=== PATIENT | male | born 1945 | race Caucasian/White ===

== ENCOUNTER 2016-10-10 09:13 | Inpatient (IN) ==
[2016-10-10] MEDS ORDERED: CEFTAROLINE 600 MG in SODIUM CHLORIDE 0.9% 100 ML IV STA (09:56)
--- NOTE | 2016-10-10 10:04 | XRay Report ---
XR chest 2V Date: 10/10/2016 9:33 AM History: Shortness of breath, fever Comparison: 03/17/2013 Technique: PA and lateral chest Findings: The heart is small and compressed by the over expanded lungs. Cardiac fat pads with chronic scarring in the lungs. Stable mediastinum. Old healed rib fractures with degenerative changes. Postoperative findings in the right shoulder. Impression: COPD with chronic scarring. No significant infiltration identified. PROCEDURE INTERPRETED AT [facility] DEPARTMENT OF RADIOLOGY Final Report Signed by: Dr. Yazmin Ferrer
[2016-10-10 10:20] LABS: Basophils # 0.1 10*3/uL (0.0-0.2); Basophils % 0.3 % (0.0-0.8); Eosinophils % 0.1 % (0.00-10.9); Hemoglobin 15.3 GM/DL (14.0-18.0); Immature Granulocytes % 0.7 %; Immature Granulocytes Absolute 0.16 #; Lymphocytes % 4.3 % (21.2-54.2); Mean Corpuscular Hemoglobin 29 PG (27-34); Mean Corpuscular Volume 85.9 FL (87-102); Mean Platelet Volume 11.8 FL (9.6-12.0); Monocytes # 1.5 10*3/uL (0.11-0.8); Monocytes % 6.9 % (1.7-12.7); Neutrophils # 19.2 10*3/uL (1.4-7.4); Neutrophils % 87.7 % (38.7-73.9); Platelet Count 162 T/CUMM (130-400); Red Blood Count 5.24 MC/CUMM (3.8-5.5); Red Cell Distribution Width 14.4 % (9.3-17.3); White Blood Count 21.9 T/CUMM (4-12)
[2016-10-10 10:38] LABS: Band Neutrophils 5 % (0-10); Lymphocytes 3 % (20-55); Segmented Neutrophils 86 % (50-85); Total Cells Counted 100
[2016-10-10 10:39] LABS: Giant Platelets Few; Hypochromasia Slight; Platelet Estimate Normal
[2016-10-10] MEDS ORDERED: CEFTAROLINE 600 MG VIAL IV ONE (10:48)
[2016-10-10] MEDS ORDERED: SODIUM CHLORIDE 0.9% 100 ML IV ONE (10:49)
[2016-10-10 10:53] LABS: Albumin 3.6 G/DL (3.4-5.0); Bilirubin,Total 0.5 MG/DL (0.2-1.0); Calcium 8.5 MG/DL (8.5-10.1); Total Protein 6.4 G/DL (6.4-8.3)
[2016-10-10 10:54] LABS: Potassium 4.6 MMOL/L (3.5-5.1)
--- NOTE | 2016-10-10 11:10 | Emergency Department Note ---
Gavino Matute Brittany, am scribing for, and in the presence of, Vamsi Graves MD 09:37. Star Matute Doug C, MD, personally performed the services described in this documentation, ascribed by Vita Mancia in my presence, and it is both accurate and complete . Arrival - Arrival Chief Complaint: Fever Stated Complaint: Feeling bad ED Nursing Triage Note: PATIENT TO TRIAGE WITH C/O ABD PAIN, CHEST PAIN, AND FEVER. PATIENTS STATES THAT HE STARTED RUNNING FEVER AND HAVING THE PAIN LAST NIGHT. Mode of Arrival: Wheelchair Limitations: No Limitations Source: Patient, RN Notes Reviewed Time Seen by Provider: 10/10/16 09:32 - History of Present Illness HPI Narrative: Patient is a 70-year-old white male presents emergency room complaining of fever , right upper abdominal and chest pain that began at 430 this morning. His checked his temperature and it was 101.4. Patient also noticed some redness and pain in his right calf which is typical of prior bouts of cellulitis. Patient states she has not had any cough or shortness of breath associated with this chest pain. He did have a chill this morning as well. He does have a history of chronic bronchitis for which she sees Dr. Rc Tripathi. He denies any nausea, vomiting, neck or shoulder discomfort. Onset (ago): hour(s) Consistency: constant Allergies/Adverse Reactions: Allergies Allergy/AdvReac Type Severity Reaction Status Date / Time IVP DYE Allergy Severe ANAPHYLAXIS Uncoded 10/10/16 09:22 statins AdvReac Fatigued Uncoded 10/10/16 09:22 Home Medications: Home Medications Medication Instructions Recorded Confirmed Type Albuterol Sulfate [Albuterol Neb] 2.5 mg RESP TX Q6H PRN 08/29/14 03/12/16 History Clopidogrel [Plavix] 75 mg PO DAILY 08/29/14 03/15/16 History Docusate Sodium 300 mg PO DAILY 08/29/14 03/12/16 History Ezetimibe [Zetia] 10 mg PO DAILY 08/29/14 03/12/16 History HYDROcodone/ACETAMIN 10-325 [[place] 1 tablet PO TID PRN 08/29/14 03/15/16 History 10-325] Ipratropium Inhaler [Atrovent 1 puff INH PRN PRN 08/29/14 03/12/16 History Inhaler] Methocarbamol 500 mg PO TID PRN 08/29/14 03/12/16 History Morphine Sulfate [Morphine Sulfate 30 mg PO DAILY 08/29/14 03/15/16 History ER] Morphine Sulfate [Morphine Sulfate 90 mg PO BID 08/29/14 03/15/16 History ER] Alendronate [Fosamax] 70 mg PO Q7DAY@0730 03/12/16 03/12/16 History Ascorbic Acid [Vitamin C] 1,000 mg PO DAILY 03/12/16 03/12/16 History Atenolol [Tenormin] 25 mg PO DAILY 03/12/16 03/12/16 History B12/Levomefolate Calcium/B-6 1 each PO DAILY 03/12/16 03/12/16 History [Foltx Tablet] Cholecalciferol (Vitamin D3) 1,000 unit PO DAILY 03/12/16 03/12/16 History [Vitamin D3] Losartan [Cozaar] 50 mg PO Q1-2H 03/12/16 03/12/16 History Multivitamin [Multivitamins] 1 each PO DAILY 03/12/16 03/12/16 History Lyman-3 Fatty Acids [Fish Oil] 2 tablet PO DAILY 03/12/16 03/12/16 History Ranitidine Tab [Zantac Tab] 150 mg PO BID 03/12/16 03/12/16 History Solifenacin Succinate [Vesicare] 10 mg PO DAILY 03/12/16 03/12/16 History hydrOXYzine pamoate [Hydroxyzine 25 mg PO DIRECTED PRN 03/12/16 03/12/16 History Pamoate] Review of System - Review of System 12 point system: reviewed and no additional remarkable complaints except as stated - Review of System Constitutional: Present: fever (101.4 highest). Absent: chills, diaphoresis Eyes: Absent: vision change Head/Ears/Nose/Throat: Absent: nasal drainage, sore throat Respiratory: Absent: cough, respiratory distress Cardiovascular: Present: chest pain (Right sided) Gastrointestinal: Present: abdominal pain. Absent: nausea, vomiting, diarrhea, constipation Genitourinary male: Absent: urgency, dysuria, frequency Musculoskeletal: Present: leg pain (RLE). Absent: arm pain, back pain, neck pain Skin: Present: change in color (redness to RLE) Neurological: Absent: headache Psychiatric: Absent: anxiety, depression Hematological/Lymphatic: Absent: easy bleeding, easy bruising Medical,Surgical,& Family Hx - Medical History Cardio: History of: Hypertension Neurology: History of: Cerebrovascular Accident No history of: Seizures HEENT: History of: Eye Problem (CATARACTS), Dental Problems (DENTURES) Endocrine: History of: Diabetes Mellitus (IDDM), Dyslipidemia Respiratory: History of: Bronchitis (CHRONIC), COPD Genitourinary: History of: Bladder Problem (FREQUENCY) Gastrointestinal: History of: GERD, Ulcerative Colitis Comment Only: GI Problems (CONSTIPATION) Musculoskeletal: History of: Musculoskeletal Problems (chronic pain, arthritis) Other: History of: Cancer (SKIN CA LEFT SHOULDER), MRSA, Skin Problems - Surgical History Neurologic Surgeries: Surgical HX of: Neurologic Surgery (DBS impantation) Abdominal Surgeries: Surgical HX of: Abdominal Surgery (COLECTOMY), Appendectomy , Cholecystectomy, Colonoscopy, EGD Orthopedic Surgeries: Surgical HX of;: Implanted Devices (DBS PAINCONTROL 1982) , Orthopedic Surgery (R ROTATOR CUFF LEFT FOOT) - Family History Family History: Reports;: Family Cancer (MOM SISTER) - Social History Smoking Status: Current every day smoker Frequency of Alcohol Use: None Type of Drug Use: None Exam Vital Signs: Vital Signs Temperature 100.1 F H 10/10/16 10:18 Pulse Rate 103 H 10/10/16 10:18 Respiratory Rate 18 10/10/16 10:18 Blood Pressure 118/68 10/10/16 10:18 O2 Sat by Pulse Oximetry 95 10/10/16 09:18 - General General appearance: alert, in no apparent distress - Head Head exam: Present: atraumatic, normocephalic, normal inspection - Eye Eye exam: Present: normal appearance, PERRL, EOMI - ENT ENT exam: Present: normal exam, normal oropharynx - Neck Neck exam: Present: normal inspection, full ROM, trachea midline - Chest Chest inspection: Present: normal inspection, symmetric chest wall rise - Respiratory Respiratory exam: Present: rales (Expiratory rales noted to the right base posteriorly). Absent: normal lung sounds bilaterally - Cardiovascular Cardiovascular exam: Present: regular rate, normal rhythm, normal heart sounds - Abdominal Exam Abdominal exam: Present: soft, tenderness (Upper abdominal tenderness to direct palpation), normal bowel sounds. Absent: distention - Extremities Exam Extremities exam: Present: full ROM. Absent: normal inspection (erythema noted to the anterior and medial portion of the right lower leg) - Back Exam Back exam: Present: normal inspection - Neurological Exam Neurological exam: Present: alert, oriented X3, CN II-XII intact. Absent: motor sensory deficit - Psychiatric Psychiatric exam: Present: normal affect, normal mood - Skin Skin exam: Present: warm, dry Course Course Narrative: Patient's clinical presentation, laboratory and radiograph findings were discussed with Radha who is covering the hospitalist service. She will see the patient in the ER and evaluate for admission. Cultures were obtained patient was started on Teflaro. Results - Labs CBC & BMP: 10/10/16 10:09 10/10/16 10:09 Lab Results: I have reviewed the patients labs Labs: Laboratory Tests 10/10/16 10:09 WBC 21.9 H RBC 5.24 Hgb 15.3 Hct 45.0 MCV 85.9 L Plt Count 162 Neut % (Auto) 87.7 H Lymph % (Auto) 4.3 L Neut # (Auto) 19.2 H Lymph # (Auto) 1.0 L [place] # (Auto) 1.5 H Laboratory Tests 10/10/16 10:09 Total Counted 100 Segmented Neutrophils 86 H Band Neutrophils 5 Lymphocytes 3 L Monocytes 6 Platelet Estimate Normal Giant Platelets Few Hypochromasia Slight - Diagnostic Findings Procedure: Chest x-ray: report reviewed by me (COPD with chronic scarring. No significant infiltration identified.) Disposition Clinical Impression: Cellulitis of lower extremity Case discussed with: patient Condition: Stable Time of Disposition: 11:09
[2016-10-10 11:24] LABS: Sedimentation Rate-Westergren 4 MM/HR (0-20)
--- NOTE | 2016-10-10 11:55 | Ultrasound Report ---
Exam: Right lower extremity venous Doppler/duplex ultrasound Comparison: 06/10/2009 Clinical history: Right leg edema Technique: Duplex scan of the right lower extremity veins using th B- mode/grayscale imaging and Dopplers spectral analysis and color flow. Findings: There is normal compression and augmentation of the right common femoral, superficial femoral and popliteal veins. The proximal right greater saphenous veins appear to be patent. Major venous structures of the right lower extremity demonstrating normal course and caliber with normal color-flow study and spectral analysis. Impression: No evidence to suggest deep venous thrombosis within the right lower extremity. Ultrasound images were captured and stored. PROCEDURE INTERPRETED AT [facility] DEPARTMENT OF RADIOLOGY Final Report Signed by: Dr. Yazmin Ferrer
--- NOTE | 2016-10-10 12:29 | Hospitalist History & Physical ---
Assessment and Plan (1) Sepsis Status: Acute Assessment and plan: The patient meets the sepsis criteria as evidenced by noted tachycardic with a heart rate of 103, leukocytosis with a white blood cell count of 21.9. In addition, the patient sustained a acute kidney injury with a BUN noted at 26 and creatinine at 1.70. Lactic acid was noted at 1.5. We will initiate the sepsis bundle and provide supportive care. Current Visit: Yes (2) Cellulitis of lower extremity Status: Acute Assessment and plan: The patient reports multiple recent bouts with cellulitis affecting the right lower extremity. The patient has been treated with multiple oral antibiotic agents; with his most recent antibiotic treatment on last month. He has clearly failed outpatient therapy. We will start empiric antibiotic coverage with Zosyn and vancomycin. We will provide supportive care. Current Visit: Yes History of Present Illness Chief complaint: Fever History of present illness: This is a very pleasant 70-year-old male that presented this morning to the ED at [facility] for the evaluation of fever. The patient has a medical history significant for hypertension, cerebrovascular accident, cataracts, [id number] diabetes mellitus, diabetic neuropathy, dyslipidemia, chronic obstructive pulmonary disease, urinary frequency, gastroesophageal reflux disease, ulcerative colitis, chronic pain, and arthritis. Patient has a surgical history significant for deep brain stimulator implantation, colectomy, appendectomy, cholecystectomy, colonoscopy, esophagogastroduodenoscopy, right toe amputations, and right rotator cuff repair. The patient reported the onset of symptoms this morning around 0430 this morning. He reports that he started to experience right upper abdominal and chest pain earlier this morning.. He asked his to check his temperature and it was noted at 101.4. In addition, the patient noted that he had some gross redness accompanied with pain to his right lower extremity which he attributed to cellulitis the patient reports multiple bouts of cellulitis in recent months; reporting his most recent outpatient treatment on last month. He reported that he completed a 14 day course of clindamycin and was told that if his cellulitis return he would probably need intravenous antibiotic coverage. Due to the severity of the reported symptoms, the patient presented to the ED at [facility] for further evaluation. The patient was seen and assessed at the time of ED presentation. The patient was febrile at the time of ED presentation with temperature noted at 100.4. The patient's right lower extremity was noted to be grossly warm with erythema and edema appreciated. The patient was also noted to be mildly tachycardic with a heart rate noted at 103. Labs were obtained which were significant for white blood cell count at 21.9, C-reactive protein 1.79 chloride 113, BUN 26, creatinine 1.70, and glucose at 197. Chest x-ray significant for chronic obstructive pulmonary disease with chronic scarring however, no significant infiltration was identified. Due to the severity of the patient's edema to the right lower leg, venous Doppler studies were ordered which were unremarkable for the presence of deep vein thrombosis in the right lower extremity. After brief discussion with both Dr. Graves and Dr. Churchill, the patient will be admitted to the hospitalist service. Home medications have been reviewed and reconciled. CODE STATUS discussed; the patient is a FULL CODE. Upon review of the patient's initial encounter, the patient meets the sepsis criteria. The sepsis bundle has been initiated. Home Medications Medication Instructions Recorded Confirmed Type Albuterol Sulfate [Albuterol Neb] 2.5 mg RESP TX Q6H PRN 08/29/14 03/12/16 History Clopidogrel [Plavix] 75 mg PO DAILY 08/29/14 03/15/16 History Docusate Sodium 300 mg PO DAILY 08/29/14 03/12/16 History Ezetimibe [Zetia] 10 mg PO DAILY 08/29/14 03/12/16 History HYDROcodone/ACETAMIN 10-325 [[place] 1 tablet PO TID PRN 08/29/14 03/15/16 History 10-325] Ipratropium Inhaler [Atrovent 1 puff INH PRN PRN 08/29/14 03/12/16 History Inhaler] Methocarbamol 500 mg PO TID PRN 08/29/14 03/12/16 History Morphine Sulfate [Morphine Sulfate 30 mg PO DAILY 08/29/14 03/15/16 History ER] Morphine Sulfate [Morphine Sulfate 90 mg PO BID 08/29/14 03/15/16 History ER] Alendronate [Fosamax] 70 mg PO Q7DAY@0703/12/16 03/12/16 History Ascorbic Acid [Vitamin C] 1,000 mg PO DAILY 03/12/16 03/12/16 History Atenolol [Tenormin] 25 mg PO DAILY 03/12/16 03/12/16 History B12/Levomefolate Calcium/B-6 1 each PO DAILY 03/12/16 03/12/16 History [Foltx Tablet] Cholecalciferol (Vitamin D3) 1,000 unit PO DAILY 03/12/16 03/12/16 History [Vitamin D3] Losartan [Cozaar] 50 mg PO Q1-2H 03/12/16 03/12/16 History Multivitamin [Multivitamins] 1 each PO DAILY 03/12/16 03/12/16 History Sargent-3 Fatty Acids [Fish Oil] 2 tablet PO DAILY 03/12/16 03/12/16 History Ranitidine Tab [Zantac Tab] 150 mg PO BID 03/12/16 03/12/16 History Solifenacin Succinate [Vesicare] 10 mg PO DAILY 03/12/16 03/12/16 History hydrOXYzine pamoate [Hydroxyzine 25 mg PO DIRECTED PRN 03/12/16 03/12/16 History Pamoate] Allergies Allergy/AdvReac Type Severity Reaction Status Date / Time IVP DYE Allergy Severe ANAPHYLAXIS Uncoded 10/10/16 09:22 statins AdvReac Fatigued Uncoded 10/10/16 09:22 Medical,Surgical,& Family Hx - Medical History Cardio: History of: Hypertension Neurology: History of: Cerebrovascular Accident (February 2013 (weakness left leg )) No history of: Seizures HEENT: History of: Eye Problem (CATARACTS), Dental Problems (DENTURES) Endocrine: History of: Diabetes Mellitus (IDDM), Dyslipidemia Respiratory: History of: Bronchitis (CHRONIC), COPD Genitourinary: History of: Bladder Problem (FREQUENCY) Gastrointestinal: History of: GERD, Ulcerative Colitis Comment Only: GI Problems (CONSTIPATION) Musculoskeletal: History of: Musculoskeletal Problems (chronic pain, arthritis) Other: History of: Cancer (SKIN CA LEFT SHOULDER), MRSA, Skin Problems - Surgical History Neurologic Surgeries: Surgical HX of: Neurologic Surgery (DBS impantation) Abdominal Surgeries: Surgical HX of: Abdominal Surgery (COLECTOMY), Appendectomy , Cholecystectomy, Colonoscopy, EGD Orthopedic Surgeries: Surgical HX of;: Implanted Devices (DBS PAINCONTROL 1982) , Orthopedic Surgery (R ROTATOR CUFF LEFT FOOT) - Family History Family History: Reports;: Family Cancer (MOM SISTER) - Social History Smoking Status: Current every day smoker Frequency of Alcohol Use: None Type of Drug Use: None 12 point system: reviewed and no additional remarkable complaints except as stated Exam - Constitutional Vitals: Period Temp Pulse Resp BP Sys/Blue Pulse Ox Last 24 Hr 97.9 F-100.1 F 68-103 18-20 114-153/57-68 95-96 General appearance: normal weight, no acute distress - Head Head exam: Present: normal inspection, normocephalic - Eye Eye exam: Present: EOMI. Absent: conjunctival injection Pupils: Present: PATRICE, normal accommodation - ENT ENT exam: Present: normal exam, normal external ear exam, normal oropharynx - Neck Neck exam: Present: normal inspection. Absent: lymphadenopathy, meningismus, tenderness, thyromegaly - Respiratory Respiratory exam: Present: clear to auscultation bilaterally. Absent: rales, rhonchi, stridor, wheezes - Cardiovascular Cardiovascular exam: Present: regular rate and rhythm. Absent: carotid bruit, diastolic murmur, gallop, JVD, rubs, systolic murmur - GI/Abdominal GI/Abdominal exam: Present: normal bowel sounds, soft - Extremities Exam Extremities exam: Present: normal capillary refill, edema (+2 edema noted to the right lower extremity), other (Gross erythema noted to the right lower extremity extending upward from the lower leg) - Back Exam Back exam: Present: normal inspection - Neurological Exam Neurological exam: Present: alert, oriented X3, CN II-XII intact - Psychiatric Psychiatric exam: Present: normal affect, normal mood - Skin Skin exam: Present: normal color, warm, dry Results - Labs CBC & BMP: 10/10/16 10:09 10/10/16 10:09 Lab Results: I have reviewed the past 24 hour labs Sepsis - Sepsis Classification of Sepsis: Sepsis Possible / Suspected infection from: Cellulitis - Physical Exam Physical Exam: The patient meets the sepsis criteria as evidenced by noted tachycardic with a heart rate of 103, leukocytosis with a white blood cell count of 21.9. In addition, the patient sustained a acute kidney injury with a BUN noted at 26 and creatinine at 1.70. Lactic acid was noted at 1.5. We will initiate the sepsis bundle and provide supportive care. - Physical Exam Respiratory exam: clear to auscultation bilaterally Capillary Refill: Less Than 3 Seconds Peripheral pulses: Radial (L): 2+, Radial (R): 2+, Dorsalis Pedis (L) PM: 2+, Dorsalis Pedis (R) PM: 2+, Posterior Tibialis (L): 2+, Posterior Tibialis (R): 2 + Cardiovascular exam: tachycardia Skin exam: normal color
[2016-10-10] MEDS ORDERED: DEXTROSE 50% 25 GM/50 ML SYRINGE IV PRN (12:36)
[2016-10-10] MEDS ORDERED: GLUCAGON 1 MG VIAL IM PRN (12:36)
[2016-10-10] MEDS: LOSARTAN 50 MG TABLET PO SCH ×2 (12:55→12:59)
[2016-10-10] MEDS: PIPERACILLIN/TAZOBACTAM 3,375 MG in SODIUM CHLORIDE 0.9% 100 ML IV SCH ×2 (12:55→21:03)
[2016-10-10] MEDS: INSULIN REGULAR 100 UNIT/ML SUBCUT SCH ×2 (17:02→21:05)
[2016-10-10] MEDS: VANCOMYCIN INJ 1,500 MG in SODIUM CHLORIDE 0.9% 500 ML IV SCH (17:03)
[2016-10-10] MEDS ORDERED: VANCOMYCIN INJ 1,500 MG in SODIUM CHLORIDE 0.9% 500 ML IV SCH (18:00)
[2016-10-10] MEDS: HydrOXYzine PAMOATE 25 MG CAPSULE PO PRN (19:09)
[2016-10-10] MEDS ORDERED: ONDANSETRON 4 MG/2 ML VIAL IV PRN (19:17)
[2016-10-10] MEDS ORDERED: ACETAMINOPHEN 325 MG TABLET PO PRN (20:41)
[2016-10-10] MEDS: FAMOTIDINE 20 MG TABLET PO SCH (20:59)
[2016-10-10] MEDS: MORPHINE ER 30 MG TABLET PO SCH (20:59)
[2016-10-11] MEDS: PIPERACILLIN/TAZOBACTAM 3,375 MG in SODIUM CHLORIDE 0.9% 100 ML IV SCH ×3 (05:26→23:30)
[2016-10-11 06:09] LABS: Basophils % 0.3 % (0.0-0.8); Eosinophils % 0.1 % (0.00-10.9); Hematocrit 40.6 VOL% (42.0-52.0); Hemoglobin 13.6 GM/DL (14.0-18.0); Immature Granulocytes % 0.5 %; Immature Granulocytes Absolute 0.08 #; Lymphocytes # 2.9 10*3/uL (1.4-4.0); Lymphocytes % 18.9 % (21.2-54.2); Mean Corpuscular HGB Conc 33.5 GM/DL (32-36); Mean Corpuscular Hemoglobin 29 PG (27-34); Mean Corpuscular Volume 87.1 FL (87-102); Mean Platelet Volume 12.4 FL (9.6-12.0); Monocytes # 1.1 10*3/uL (0.11-0.8); Monocytes % 7.4 % (1.7-12.7); Neutrophils % 72.8 % (38.7-73.9); Platelet Count 134 T/CUMM (130-400); Red Blood Count 4.66 MC/CUMM (3.8-5.5); Red Cell Distribution Width 14.5 % (9.3-17.3); White Blood Count 15.1 T/CUMM (4-12)
[2016-10-11 06:18] LABS: Apearance,Urine CLEAR (Clear); Bilirubin,Urine Negative (Negative); Blood, Urine Negative (Negative); Glucose,Urine (UA) Negative (Negative); Ketones,Urine Negative (Negative); Mucus,Urine Occasional /LPF (Occasional); Nitrite,Urine Negative (Negative); Protein,Urine Negative; RBC,Urine <1 /HPF (0-4); Urine Color Yellow (Yellow); Urine Specific Gravity 1.023 (1.001-1.035); Urine Urobilinogen < 2.0 EU/DL (0.2-1.0); WBC,Urine <1 /HPF (0-6)
[2016-10-11 06:53] LABS: Albumin 2.8 G/DL (3.4-5.0); Bilirubin,Total 0.4 MG/DL (0.2-1.0); Calcium 7.7 MG/DL (8.5-10.1); Osmolality,Calculated 296.7 MOS/KG (273-304); Potassium 4.5 MMOL/L (3.5-5.1); Total Protein 5.3 G/DL (6.4-8.3)
[2016-10-11] MEDS: METHOCARBAMOL 500 MG TABLET PO PRN ×2 (07:10→14:48)
[2016-10-11] MEDS: ATENOLOL 25 MG TABLET PO SCH (09:03)
[2016-10-11] MEDS: DOCUSATE SODIUM 100 MG CAPSULE PO SCH (09:04)
[2016-10-11] MEDS: MORPHINE ER 30 MG TABLET PO SCH ×4 (09:04→21:02)
[2016-10-11] MEDS: EZETIMIBE 10 MG TABLET PO SCH (09:04)
[2016-10-11] MEDS: SOLIFENACIN 5 MG TABLET PO SCH (09:04)
[2016-10-11] MEDS: CLOPIDOGREL 75 MG TABLET PO SCH (09:04)
[2016-10-11] MEDS: OMEGA 3 ACID ETHYL ESTERS 1 GM CAPSULE PO SCH (09:05)
[2016-10-11] MEDS: FAMOTIDINE 20 MG TABLET PO SCH ×2 (09:05→21:03)
[2016-10-11] MEDS: INSULIN REGULAR 100 UNIT/ML SUBCUT SCH ×4 (09:05→21:04)
[2016-10-11] MEDS: ASCORBIC ACID 500 MG TABLET PO SCH (09:09)
[2016-10-11] MEDS: CHOLECALCIFEROL 1,000 UNIT TABLET PO SCH (09:09)
[2016-10-11] MEDS: MULTIVITAMIN (CENTRUM) TABLET PO SCH (09:10)
[2016-10-11] MEDS: LOSARTAN 50 MG TABLET PO SCH (13:41)
--- NOTE | 2016-10-11 14:34 | Hospitalist Progress Note ---
Assessment and Plan (1) Cellulitis of lower extremity Status: Acute Assessment and plan: Patient responding to antibiotic. He has a chronic draining sinus at the first MTP stump on the right side this is strongly suggestive of osteomyelitis unfortunately cannot have MRI of the foot done because he has a brain implant. Do three-phase bone scan Current Visit: Yes (2) Sepsis Status: Acute Assessment and plan: Continue antibiotics. Fever curve was lysed. Follow the outcome of 3 phase bone scan Current Visit: Yes Hospitalist: Subjective Interval history: Patient seen interviewed and examined and chart has been doing much better the erythema is reducing in the right lower extremity this gentleman has a chronic draining sinus of the foot prior history of amputation of the first toe. Chronicity of this draining sinus is suspicious for possibility of chronic osteomyelitis. Is going to order an MRI on his foot however he has an implanted stimulator in his brain. I do not want to put him in a MRI magnetic with these. X-ray of the foot would not tell me much therefore I will do a three-phase bone scan. Granted the posterior horn having a differential diabetic osteopathy but if the abnormalities ease at the site of the draining sinus, that would suggest osteomyelitis. Negative three-phase bone scan is likely to mean no osteomyelitis. Exam - Constitutional Vitals: Period Temp Pulse Resp BP Sys/Blue Pulse Ox Last 24 Hr 97.8 F-102.2 F 58-94 17-20 110-137/53-81 92-98 General appearance: no acute distress, over weight - Eye Eye exam: Present: EOMI Pupils: Present: PATRICE - ENT ENT exam: Present: normal exam - Neck Neck exam: Present: normal inspection - Respiratory Respiratory exam: Present: clear to auscultation bilaterally - Cardiovascular Cardiovascular exam: Present: regular rate and rhythm - GI/Abdominal GI/Abdominal exam: Present: normal bowel sounds, soft - Extremities Exam Extremities exam: Present: full ROM - Neurological Exam Neurological exam: Present: alert, oriented X3, CN II-XII intact - Psychiatric Psychiatric exam: Present: normal affect, normal mood - Skin Skin exam: Present: warm, dry, other (Noted wound with a draining sinus at the right foot stump area.) Results - Labs CBC & BMP: 10/11/16 04:47 10/11/16 04:47 Lab Results: I have reviewed the past 24 hour labs (Noted leukocytosis creatinine one-point repeat CBC BMP and magnesium)
--- NOTE | 2016-10-11 14:51 | ECHO Report ---
Perez Sarabia Exam Date: 10/11/2016 09:48 Referring Physician: Technologist: clemencia Hernandez ARDMS, RVT Age: 70 Ht (in): 71 Wt (lb): 220 Gender: M Exam Location: [facility] Echo Indications: Essential (primary) hypertension, Hx: CVA, GERD, Sepsis, NIDDM, Diabetic neuropathy, Cellulitis lower extremities, Fever BP: 127 / 81 HR: 69 Rhythm: Sinus Technical Quality: IMPRESSIONS Technically difficult study 1+ left atrial enlargement Normal LV systolic function with ejection fraction estimated be 65% without obvious wall motion normality Probable aortic sclerosis without stenosis 1+ tricuspid regurgitation with RVSP 22 mmHg plus RAP MEASUREMENTS (Male / Female) Normal Values 2D ECHO LV Diastolic Diameter PLAX 5.9 cm 4.2 - 5.9 / 3.9 - 5.3 cm LV Systolic Diameter PLAX 2.8 cm LV Fractional Shortening PLAX 52.1 % IVS Diastolic Thickness 0.9 cm 0.6 - 1.0 / 0.6 - 0.9 cm LVPW Diastolic Thickness 1.1 cm 0.6 - 1.0 / 0.6 - 0.9 cm RV Internal Dim ED PLAX 3.7 cm Aortic Root Diameter 3.8 cm LA Systolic Diameter LX 4.3 cm 3.0 - 4.0 / 2.7 - 3.8 cm DOPPLER TR Peak Velocity 235.0 cm/s TR Peak Gradient 22.1 mmHg FINDINGS Left Ventricle Normal left ventricular cavity size. Normal left ventricular wall thickness. Left ventricular ejection fraction is estimated at 60-65 %. Right Ventricle Mildly increased right ventricular size. Right Atrium The right atrium is mildly enlarged. Left Atrium The left atrium is mildly enlarged. Mitral Valve Morphologically normal mitral valve without significant stenosis or prolapse. There is no mitral regurgitation. Aortic Valve Morphologically normal aortic valve without significant sclerosis or stenosis. There is no aortic regurgitation. Tricuspid Valve Morphologically normal tricuspid valve. Trace to mild tricuspid valve regurgitation. Tricuspid regurgitation velocities suggest a PAP of 32 mmHg. Pulmonic Valve Morphologically normal pulmonic valve without significant stenosis. There is no pulmonic regurgitation. Pericardium Normal pericardium without effusion. Aorta Normal ascending aorta dimension. Musa Cee (Electronically Signed) Final Date: 11 October 2016 14:50
[2016-10-11] MEDS: HydrOXYzine PAMOATE 25 MG CAPSULE PO PRN ×2 (14:56→21:15)
[2016-10-11] MEDS: VANCOMYCIN INJ 1,500 MG in SODIUM CHLORIDE 0.9% 500 ML IV SCH (19:33)
[2016-10-12] MEDS: PIPERACILLIN/TAZOBACTAM 3,375 MG in SODIUM CHLORIDE 0.9% 100 ML IV SCH ×3 (07:17→23:34)
[2016-10-12] MEDS: SOLIFENACIN 5 MG TABLET PO SCH (08:09)
[2016-10-12] MEDS: FAMOTIDINE 20 MG TABLET PO SCH ×2 (08:09→20:53)
[2016-10-12] MEDS: CLOPIDOGREL 75 MG TABLET PO SCH (08:09)
[2016-10-12] MEDS: EZETIMIBE 10 MG TABLET PO SCH (08:09)
[2016-10-12] MEDS: MORPHINE ER 30 MG TABLET PO SCH ×3 (08:09→20:52)
[2016-10-12] MEDS: DOCUSATE SODIUM 100 MG CAPSULE PO SCH (08:09)
[2016-10-12] MEDS: HydrOXYzine PAMOATE 25 MG CAPSULE PO PRN ×2 (08:10→20:52)
[2016-10-12] MEDS: ATENOLOL 25 MG TABLET PO SCH (08:10)
[2016-10-12] MEDS: ASCORBIC ACID 500 MG TABLET PO SCH (08:13)
[2016-10-12] MEDS: CHOLECALCIFEROL 1,000 UNIT TABLET PO SCH (08:13)
[2016-10-12] MEDS: OMEGA 3 ACID ETHYL ESTERS 1 GM CAPSULE PO SCH (08:14)
[2016-10-12] MEDS: MULTIVITAMIN (CENTRUM) TABLET PO SCH (08:14)
[2016-10-12] MEDS: INSULIN REGULAR 100 UNIT/ML SUBCUT SCH ×4 (08:20→21:41)
[2016-10-12] MEDS: HEPARIN 5,000 UNIT/1 ML VIAL SUBCUT SCH ×2 (10:31→20:53)
--- NOTE | 2016-10-12 11:55 | Hospitalist Progress Note ---
Assessment and Plan (1) Cellulitis of lower extremity Status: Acute Assessment and plan: Patient responding to antibiotic. He has a chronic draining sinus at the first MTP stump on the right side this is strongly suggestive of osteomyelitis unfortunately cannot have MRI of the foot done because he has a brain implant. Do three-phase bone scan Current Visit: Yes (2) Sepsis Status: Acute Assessment and plan: Continue antibiotics. Fever curve was lysed. Follow the outcome of 3 phase bone scan Current Visit: Yes Hospitalist: Subjective Interval history: Patient has been seen interviewed and examined and chart has been reviewed. Admitted 2 days ago with cellulitis involving the right lower extremity complicating a chronic infection at the first MTP chronic draining sinus. Status post amputation of the big toe on the right side and has had a wound that was never reviewed for quite a few months. Concerning the possibility of osteomyelitis I wanted to MRI of this right foot yesterday unfortunately this gentleman has an implant in his brain. Therefore I have scheduled for three- phase bone scan. If the bone scan is positive we will need to be treated for approximately 6 weeks with IV antibiotics for management of osteomyelitis. This is negative then she will be able to go home on oral antibiotics preferably minocycline 80 mg twice a day for 14 days. Because a bone scan is not done yet and is in the process of being done patient is still here so he may probably be discharged tomorrow or if the bone scan is positive then he will need to be arranged for IV antibiotics at home to take for 6 weeks. Exam - Constitutional Vitals: Period Temp Pulse Resp BP Sys/Blue Pulse Ox Last 24 Hr 97.2 F-98.2 F 49-60 18-20 108-158/52-67 91-97 General appearance: over weight - Head Head exam: Present: normocephalic, atraumatic - Eye Eye exam: Present: EOMI Pupils: Present: PATRICE - ENT ENT exam: Present: normal exam - Neck Neck exam: Present: normal inspection - Respiratory Respiratory exam: Present: clear to auscultation bilaterally - Cardiovascular Cardiovascular exam: Present: regular rate and rhythm - GI/Abdominal GI/Abdominal exam: Present: normal bowel sounds, soft - Extremities Exam Extremities exam: Present: full ROM, other (Amputation of the great toe on the right foot cellulitis of the right lower extremity is receding) - Neurological Exam Neurological exam: Present: alert, oriented X3, CN II-XII intact - Psychiatric Psychiatric exam: Present: normal affect, normal mood - Skin Skin exam: Present: normal color, warm, dry Results - Labs CBC & BMP: 10/11/16 04:47 10/11/16 04:47 Lab Results: I have reviewed the past 24 hour labs (Repeat CBC in the morning alongside BMP and magnesium)
[2016-10-12] MEDS: LOSARTAN 50 MG TABLET PO SCH (12:19)
--- NOTE | 2016-10-12 12:34 | Nuclear Medicine Report ---
NM bone 3 phase Indication: Chronic wound right foot. Three-phase bone scan: 30 mCi technetium 99 labeled MDP was injected. Arterial flow images over the legs and feet were obtained, followed by whole-body bone scan and more focused delayed imaging over both feet. Comparison: No recent radiographs of the foot.. Findings: The right leg is hyperemic when compared to the left. Increased activity involves the right great toe on delayed images, as well as the approximate right navicular region. The remainder of the skeletal structures show normal activity levels. Impression: Evidence of osteomyelitis right great toe and approximate right navicular. There are no plain films provided for comparison. Recommend 3 views of the foot. PROCEDURE INTERPRETED AT [facility] DEPARTMENT OF RADIOLOGY Final Report Signed by: Eladio Davison M.D.
--- NOTE | 2016-10-12 17:17 | XRay Report ---
Exam: XR foot 3V RT Date: 10/12/2016 4:36 PM Comparison: 02/02/2016, 3 phase bone scan 10/12/2016 Indication: Osteomyelitis, chronic foot Technique:[AP, oblique, and lateral right foot] Findings: Interval resection of the great toe in the mid first metatarsal location. Chronic deformity of the distal second metatarsal. Hammertoe deformity with chronic deformity especially the third toe. Vascular calcifications are identified. Impression: Interval amputation of the great toe with old healed fracture of the distal second metatarsal. Hammertoe deformity with overlapping densities especially at the level of the third toe. The findings in the bone scan are felt to be somewhat indeterminate and may be related to the interval surgery and prior fracture. No significant progressive periosteal thickening or bone destruction to indicate conclusive osteomyelitis and x-ray. If symptoms progress, MRI may be helpful for further evaluation. PROCEDURE INTERPRETED AT [facility] DEPARTMENT OF RADIOLOGY Final Report Signed by: Dr. Yazmin Ferrer
[2016-10-12] MEDS: VANCOMYCIN INJ 1,500 MG in SODIUM CHLORIDE 0.9% 500 ML IV SCH (20:23)
[2016-10-12] MEDS: MEMANTINE 5 MG TABLET PO SCH (20:52)
[2016-10-13] MEDS: PIPERACILLIN/TAZOBACTAM 3,375 MG in SODIUM CHLORIDE 0.9% 100 ML IV SCH (06:40)
[2016-10-13] MEDS: MEMANTINE 5 MG TABLET PO SCH (08:25)
[2016-10-13] MEDS: HydrOXYzine PAMOATE 25 MG CAPSULE PO PRN (08:25)
[2016-10-13] MEDS: SOLIFENACIN 5 MG TABLET PO SCH (08:25)
[2016-10-13] MEDS: CLOPIDOGREL 75 MG TABLET PO SCH (08:25)
[2016-10-13] MEDS: FAMOTIDINE 20 MG TABLET PO SCH (08:25)
[2016-10-13] MEDS: DOCUSATE SODIUM 100 MG CAPSULE PO SCH (08:25)
[2016-10-13] MEDS: ATENOLOL 25 MG TABLET PO SCH (08:25)
[2016-10-13] MEDS: MORPHINE ER 30 MG TABLET PO SCH ×2 (08:26→12:20)
[2016-10-13] MEDS: EZETIMIBE 10 MG TABLET PO SCH (08:26)
[2016-10-13] MEDS: HEPARIN 5,000 UNIT/1 ML VIAL SUBCUT SCH (08:26)
[2016-10-13] MEDS: OMEGA 3 ACID ETHYL ESTERS 1 GM CAPSULE PO SCH (09:17)
[2016-10-13] MEDS: INSULIN REGULAR 100 UNIT/ML SUBCUT SCH ×3 (09:17→17:19)
[2016-10-13] MEDS: MULTIVITAMIN (CENTRUM) TABLET PO SCH (09:17)
[2016-10-13] MEDS: ASCORBIC ACID 500 MG TABLET PO SCH (09:17)
[2016-10-13] MEDS: CHOLECALCIFEROL 1,000 UNIT TABLET PO SCH (09:17)
--- NOTE | 2016-10-13 11:43 | Infectious Disease Consult ---
Assessment and Plan (1) Cellulitis of lower extremity Status: Acute Assessment and plan: Recurring cellulitis due to chronic wound on Rt foot, improved. Treat with antibiotics as below. Current Visit: Yes (2) Sepsis Status: Acute Assessment and plan: Better, with resolved fever and improving leukocytosis. Current Visit: Yes (3) Chronic osteomyelitis of right foot Status: Acute Assessment and plan: The results of the bone scan and Rt foot xrays were discussed with Dr Davison and the conclusion given the overall clinical scenario is that the patient has chronic osteomyelitis of the Rt foot. Surprisingly his ESR is normal and his CRP is only mildly elevated Recommendations: 1. In preparation for d/c home, will switch to daily antibiotics for convenient dosing; so ertapenem 1g daily, and daptomycin 6mg/kg daily. Vanc. and Zoyn will be stopped. Plan is to treat for 6 weeks. 2. PICC placement today 3. Consult social services counselor to arrange outpatient IV antibiotics 4. Get baseline CPK (will monitor this weekly while on daptomycin) 5. Appt to see me in the office 1 week post discharge Thank you very much for the consult. Will follow. D/W patient's at bedside. Current Visit: Yes History of Present Illness Chief complaint: Suspected osteomyelitis of the right foot History of present illness: Mr. Sarabia is a 70 year old male with chronic wound to sole of right foot related to callus that has been "shaved" by podiatry every 3 weeks for the past several months. He presented to hospital 3 days ago with high fever and redness and pain to the right leg of sudden onset. This is the third time this happening to him in 3 months. Each time he was diagnosed with cellulitis and given antibiotic therapy. First 2 times clindamycin is what helped him but this time that did not help and so he is here in the hospital getting vancomycin and Zosyn. Because of the chronic nature of the wound on the sole of his foot and the fact that it is drains radiologic studies were done and they suggested osteomyelitis. He had a bone scan and then x-rays of the right foot. The latter study gave an equivocal report on whether or not there was osteomyelitis. It was felt the patient needs prolonged IV antibiotics for osteomyelitis and I am consulted. Patient had the right great toe amputated in February this year because of a chronic wound for almost a year which started out as a blister from a shoe. Patient is diabetic for about 30 years but it has been controlled with A1c less than 6.5%. Overall he is feeling much better now than when he first came to the hospital with resolved fever and much improved redness and pain of the right leg. Home Medications Medication Instructions Recorded Confirmed Type Albuterol Sulfate [Albuterol Neb] 2.5 mg RESP TX Q6H PRN 08/29/14 10/10/16 History Clopidogrel [Plavix] 75 mg PO DAILY 08/29/14 10/10/16 History Docusate Sodium 100 mg PO DAILY 08/29/14 10/10/16 History Ezetimibe [Zetia] 10 mg PO DAILY 08/29/14 10/10/16 History HYDROcodone/ACETAMIN 10-325 [[place] 1 tablet PO TID PRN 08/29/14 10/10/16 History 10-325] Ipratropium Inhaler [Atrovent 1 puff INH PRN PRN 08/29/14 10/10/16 History Inhaler] Methocarbamol 500 mg PO TID PRN 08/29/14 10/10/16 History Morphine Sulfate [Morphine Sulfate 30 mg PO AC LUNCH 08/29/14 10/10/16 History ER] Morphine Sulfate [Morphine Sulfate 90 mg PO BID 08/29/14 10/10/16 History ER] Alendronate [Fosamax] 70 mg PO Q7DAY@0730 03/12/16 10/10/16 History B12/Levomefolate Calcium/B-6 1 each PO DAILY 03/12/16 10/10/16 History [Foltx Tablet] Losartan [Cozaar] 50 mg PO PC LUNCH 03/12/16 10/10/16 History Multivitamin [Multivitamins] 1 each PO DAILY 03/12/16 10/10/16 History [place]-3 Fatty Acids [Fish Oil] 2 tablet PO DAILY 03/12/16 10/10/16 History Ranitidine Tab [Zantac Tab] 150 mg PO BID 03/12/16 10/10/16 History hydrOXYzine pamoate [Hydroxyzine 25 mg PO DIRECTED PRN 03/12/16 10/10/16 History Pamoate] HydrOXYzine PAMOATE CAP [Vistaril 25 mg PO Q6HR PRN 10/10/16 10/10/16 History Cap] Insulin NPH/Regular 70/30 [HumuLIN 18 units SUBCUT QPM 10/10/16 10/10/16 History 70/30] Insulin NPH/Regular 70/30 [HumuLIN 24 units SUBCUT QAM 10/10/16 10/10/16 History 70/30] Solifenacin Succinate [Vesicare] 10 mg PO QAM 10/10/16 10/10/16 History Triamterene/Hydrochlorothiazid 1 capsule PO DAILY 10/10/16 10/10/16 History [Triamterene-Hctz 37.5-25 mg Cp] cloNIDine HCl [Clonidine HCl] 0.15 mg PO BID 10/10/16 10/10/16 History Memantine [Namenda] 5 mg PO BID 10/12/16 10/12/16 History Allergies Allergy/AdvReac Type Severity Reaction Status Date / Time Iodinated Contrast Media - Allergy Severe ANAPHYLAXIS Verified 10/12/16 12:27 Oral and Ecdvabc-Ekb-Hmv Reductase AdvReac Fatigued Verified 10/12/16 12:27 Inhibitor 12 point system: reviewed and no additional remarkable complaints except as stated (Per HPI) Medical,Surgical,& Family Hx - Medical History Cardio: History of: Hypertension Neurology: History of: Cerebrovascular Accident (February 2013 (weakness left leg )) No history of: Seizures HEENT: History of: Eye Problem (CATARACTS), Dental Problems (DENTURES) Endocrine: History of: Diabetes Mellitus (IDDM), Dyslipidemia Respiratory: History of: Bronchitis (CHRONIC), COPD Genitourinary: History of: Bladder Problem (FREQUENCY) Gastrointestinal: History of: GERD, Ulcerative Colitis Comment Only: GI Problems (CONSTIPATION) Musculoskeletal: History of: Musculoskeletal Problems (chronic pain, arthritis) Other: History of: Cancer (SKIN CA LEFT SHOULDER), MRSA, Skin Problems - Surgical History Neurologic Surgeries: Surgical HX of: Neurologic Surgery (DBS impantation) Abdominal Surgeries: Surgical HX of: Abdominal Surgery (COLECTOMY), Appendectomy , Cholecystectomy, Colonoscopy, EGD Orthopedic Surgeries: Surgical HX of;: Implanted Devices (DBS PAINCONTROL 1982) , Orthopedic Surgery (R ROTATOR CUFF LEFT FOOT) - Family History Family History: Reports;: Family Cancer (MOM SISTER) - Social History Smoking Status: Current every day smoker Frequency of Alcohol Use: None Type of Drug Use: None Infectious Disease Exam H&P - Constitutional Vitals: Vital Signs Temp Pulse Resp BP Pulse Ox 98.0 F 60 20 155/67 94 L 10/13/16 08:00 10/13/16 08:00 10/13/16 08:00 10/13/16 08:00 10/13/16 08:00 Intake and Output 10/12/16 10/13/16 10/13/16 23:59 07:59 15:59 Intake Total 1080 / 1080 250 / 250 Balance 1080 / 1080 250 / 250 Intake: IV 600 / 600 100 / 100 Zosyn 3,375 mg In Ns 100 100 / 100 100 / 100 ml @ 25 mls/hr IV Q8H MADELINE Rx#:[id number] Vancomycin Inj 5,000 mg 500 / 500 In Ns 500 ml @ 250 mls/hr IV Q24H MADELINE Rx#: [id number] Oral 480 / 480 150 / 150 Other: Voiding Method Toilet Toilet # Voids 3 2 # Bowel Movements 0 1 Exam: General: Patient comfortable HEENT: Mucous membranes pink and moist, anicteric acyanotic, PATRICE, no oropharyngeal exudates Neck: Supple, no thyroid gland enlargement Respiratory system: Breath sounds vesicular, no crepitations or wheezes Cardiovascular: Normal S1 and S2, no murmurs appreciated Abdomen: Normal bowel sounds, soft nontender throughout, no organomegaly or mass Genitourinary: No suprapubic pain or bladder distention Extremities: Mild edema right leg, also there is mild erythema and hyperemia of the distal two thirds of the leg. He has a callus to the ball of the right foot with mild ulceration and scant bloody drainage. No tenderness on palpation. Absent great toe. Skin: No rash Reports - Labs CBC & BMP: 10/11/16 04:47 10/11/16 04:47 Labs: Laboratory Results - last 24 hr 10/12/16 10/12/16 10/12/16 11:01 15:49 20:59 POC Glucose 283 H 187 H 253 H 10/13/16 10/13/16 07:34 11:03 POC Glucose 118 H 215 H - Reports Microbiology: Microbiology 10/10/16 10:14 Blood Culture - Preliminary Blood No growth at 3 days 10/10/16 10:09 Blood Culture - Preliminary Blood No growth at 3 days 10/12/16 19:00 Wound Culture - Preliminary Foot - Right No Growth at 12 hours. 10/11/16 05:30 Urine Culture - Final Urine,Clean Catch No Growth at 48 hours. - Diagnostic Findings Procedure: X-ray: image reviewed by me, report reviewed by me (Right foot x-ray noted, bone scan results also noted with mention of also mellitus and right great toe however that toe has been amputated)
[2016-10-13] MEDS ORDERED: MULTIVITAMIN (BEROCCA) TABLET PO SCH (12:00)
[2016-10-13] MEDS: LOSARTAN 50 MG TABLET PO SCH (12:18)
[2016-10-13 14:58] LABS: Osmolality,Calculated 297.6 MOS/KG (273-304); Potassium 4.3 MMOL/L (3.5-5.1)
--- NOTE | 2016-10-13 15:39 | Discharge Summary ---
Hospital Course - Hospital Course Hospital Course: 70-year-old male with a medical history significant for hypertension, cerebrovascular accident, cataracts, [id number] diabetes mellitus, diabetic neuropathy, dyslipidemia, chronic obstructive pulmonary disease, urinary frequency, gastroesophageal reflux disease, ulcerative colitis, chronic pain, and arthritis. He was admitted to the hospitalist service for sepsis secondary to right lower extremity cellulitis. He was started on zosyn and vancomycin. He was also noted to have chronic draining sinus at the first MRP stump on the right side. Bone scan was concerning for chronic osteomyelitis. Infectious Disease was consulted. His antibiotics were switched to Ertapenem and Daptomycin with recommendations for 6 weeks of therapy. He has now reached maximal benefit of inpatient stay and will be discharged to home with home IV therapy. - Time spent with patient Time with patient DS: Greater than 30 minutes (40) Diagnosis - Discharge Diagnosis (1) Cellulitis of lower extremity Status: Resolved (2) Sepsis Status: Resolved (3) Chronic osteomyelitis of right foot Status: Chronic Discharge Plan - Discharge Data Disposition: Home Health Service Condition at Discharge: Stable Discharge Diet: advance to your usual diet Activity: increase activity as tolerated Hygiene: no restrictions Weight Bearing at Discharge: weight bear as tolerated Contact your physician if you experience:: fever over 101, Redness or swelling - Discharge Medications New DAPTOmycin [Cubicin] 600 mg IV Q24H vial Ertapenem [INVanz] 1,000 mg IV Q24H vial Continue Ezetimibe [Zetia] 10 mg PO DAILY Morphine Sulfate [Morphine ER Cap] 30 mg PO AC LUNCH Morphine Sulfate [Morphine ER Cap] 90 mg PO BID Methocarbamol 500 mg PO TID PRN PRN Reason: Pain HYDROcodone/ACETAMIN 10-325 [[place] 10-325] 1 tablet PO TID PRN PRN Reason: Pain Docusate Sodium 100 mg PO DAILY Clopidogrel [Plavix] 75 mg PO DAILY Albuterol Sulfate [Albuterol Neb] 2.5 mg RESP TX Q6H PRN PRN Reason: Shortness Of Breath/Wheezing Ipratropium Inhaler [Atrovent Inhaler] 1 puff INH PRN PRN PRN Reason: Shortness Of Breath Multivitamin [Multivitamins] 1 each PO DAILY Insulin NPH/Regular 70/30 [HumuLIN 70/30] 24 units SUBCUT QAM Triamterene/Hydrochlorothiazid [Triamterene-Hctz 37.5-25 mg Cp] 1 capsule PO DAILY Memantine [Namenda] 5 mg PO BID Alendronate [Fosamax] 70 mg PO Q7DAY@0730 Losartan [Cozaar] 50 mg PO PC LUNCH Ranitidine Tab [Zantac Tab] 150 mg PO BID B12/Levomefolate Calcium/B-6 [Foltx Tablet] 1 each PO DAILY [place]-3 Fatty Acids [Fish Oil] 2 tablet PO DAILY hydrOXYzine pamoate [Hydroxyzine Pamoate] 25 mg PO DIRECTED PRN PRN Reason: Pain Insulin NPH/Regular 70/30 [HumuLIN 70/30] 18 units SUBCUT QPM Solifenacin Succinate [Vesicare] 10 mg PO QAM HydrOXYzine PAMOATE CAP [Vistaril Cap] 25 mg PO Q6HR PRN PRN Reason: Sleep Discontinued cloNIDine HCl [Clonidine HCl] 0.15 mg PO BID - Follow Up or Referral - Forms/Instructions Instructions: Cellulitis (DC), Peripherally Inserted Central Catheters and Midline Catheters (DC) Exam - Constitutional Vitals: Period Temp Pulse Resp BP Sys/Blue Pulse Ox Last 24 Hr 97.4 F-98.0 F 48-60 18-20 103-155/56-76 94-98 General appearance: over weight - Head Head exam: Present: normocephalic, atraumatic - Eye Eye exam: Present: EOMI Pupils: Present: PATRICE - ENT ENT exam: Present: normal exam - Neck Neck exam: Present: normal inspection. Absent: tenderness - Respiratory Respiratory exam: Present: clear to auscultation bilaterally. Absent: wheezes - Cardiovascular Cardiovascular exam: Present: regular rate and rhythm - GI/Abdominal GI/Abdominal exam: Present: normal bowel sounds, soft. Absent: tenderness, rebound - Extremities Exam Extremities exam: Present: normal inspection - Back Exam Back exam: Present: normal inspection - Neurological Exam Neurological exam: Present: alert, oriented X3 - Psychiatric Psychiatric exam: Present: normal affect, normal mood - Skin Skin exam: Present: warm, intact Discharge Results Procedures and tests throughout hospitalization: Pending Orders 10/10/16 09:32 Urinalysis Stat 10/10/16 10:14 Blood Culture Stat 10/12/16 19:00 Wound Culture Routine 10/13/16 US guide vascular access Routine 10/13/16 13:58 IR PICC line insertion Routine 10/14/16 04:00 Basic Metabolic Panel w/Mg IN AM Comp Blood Count Auto Diff IN AM Labs on day of discharge: Labs from last 24 hours 10/13/16 10/13/16 10/13/16 14:26 11:03 07:34 Sodium 146 H Potassium 4.3 Chloride 115 H Carbon Dioxide 26 Anion Gap 9.3 BUN 23 H Creatinine 1.70 H GFR Calculation 51 BUN/Creatinine Ratio 13.00 Glucose 174 H POC Glucose 215 H 118 H Calculated Osmolality 297.6 Calcium 8.0 L Total Creatine Kinase 191 10/12/16 10/12/16 20:59 15:49 Sodium Potassium Chloride Carbon Dioxide Anion Gap BUN Creatinine GFR Calculation BUN/Creatinine Ratio Glucose POC Glucose 253 H 187 H Calculated Osmolality Calcium Total Creatine Kinase Preliminary micro results at discharge 10/10/16 10:14 Blood Culture - Preliminary Blood No growth at 3 days 10/10/16 10:09 Blood Culture - Preliminary Blood No growth at 3 days 10/12/16 19:00 Wound Culture - Preliminary Foot - Right No Growth at 12 hours. DS: Provider Date of admission: 10/10/16 11:17 Primary care physician: Rc Tripathi MD Attending physician on admission: Gui Churchill MD Consults: 10/10/16 12:12 Consult to Pastoral Services [CONS] Routine Comment: Pastoral Screen: Request Automatic Outsole Cutter Visit 10/10/16 16:30 Consult to Pharmacy [CONS] Routine Reason for Pharmacy Consult: Dose/Manage Vancomycin 10/12/16 16:34 Consult to Physician [CONS] Routine Comment: middle or intermediate school principal antibotics, for osteomylitis. Consulting Provider: Angella Adan 10/13/16 13:58 Consult to Case Mgmt/Social Srvs [CONS] Routine Reason for Case Mgmt/Social Srvs: Home IV Therapy Consult Comment: ertapenem 1g daily + daptomycin 6mg/kg daily until 11/21/16. 10/13/16 15:11 Consult to Case Mgmt/Social Srvs [CONS] Routine Reason for Case Mgmt/Social Srvs: Home Health Consult Comment: Home Health for IV infusions at home Discharging clinician: Joaquin Tinajero MD
[2016-10-13 15:48] VITALS: BP 183/77
[2016-10-13] MEDS ORDERED: ERTAPENEM 1,000 MG in SODIUM CHLORIDE 0.9% 100 ML IV SCH (16:00)
--- NOTE | 2016-10-13 17:15 | Post Interventional Procedure ---
Pre-op diagnosis: osteomyelitis Post-op diagnosis: same Procedure: PICC placement Contrast: none Flouroscopy: 1.5 min Radiologist: Ceferino Reynoso Anesthesia: local Specimens: none sent Estimated blood loss: minimal (5 mL) Complications: none Condition: stable Description/Findings: left arm 5 Fr dual lumen PICC placement done and ready to use Assessment and Plan - Time spent with patient Time spent with patient: Less than 30 minutes
--- NOTE | 2016-10-13 17:19 | Interventional Radiology Rpt ---
IR PICC line insertion, US guide vascular access IR PICC Placement Peripherally-inserted central catheter (PICC) placement using ultrasound and fluoroscopic guidance Ultrasound of the left upper extremity Clinical Information: 70-year-old male with osteomyelitis. PICC line is requested for long-term intravenous antibiotic administration Physician: Dr. Reynoso Procedure: The patient was advised of the benefits, risks, and alternatives of the procedure and informed consent was obtained. A time out was performed with verification of the patient's name, MRN, site of procedure, and type of procedure to be performed. The patient was positioned in the supine position on the angiographic table. The site was prepped and draped in the usual sterile fashion. Additionally, maximal sterile barrier technique was employed for the procedure. A electronic systems technician radiograph reveals no relevant abnormality. Ultrasound examination of the left arm demonstrates patent and compressible brachial and basilic veins. The left arm was prepped and draped in the usual sterile fashion. The left basilic vein was again identified. Using ultrasound guidance, a 21 gauge needle was used to access the vein. A permanent ultrasound recording of vascular access was obtained for the patient's record. A 0.018" cope wire was then advanced into the vein. The needle was exchanged for a 5 Maori peel-away sheath. A 5 Maori double lumen Bard Solo PICC catheter was measured and trimmed to the 48 cm sukhjinder. The PICC line was advanced through the sheath and into the central circulation. The catheter tip was positioned at the cavo-atrial junction. The peel-away sheath was then removed. At the conclusion of the procedure, the catheter was secured in place using a Stat-Lock device. A sterile dressing was applied. The lumens aspirate and flush freely. The catheter is ready for immediate use. The patient tolerated the procedure well and was returned to the PRU in stable condition. EBL: < 5 mL. Complications: None. Fluoroscopy time: 1.5 minutes Total number of images for this study: 3 Conclusion: Successful placement of a 5 Maori double lumen Bard Solo power injectable PICC via the left basilic vein. The catheter is ready for immediate use. PROCEDURE INTERPRETED AT [facility] DEPARTMENT OF RADIOLOGY Final Report Signed by: Ceferino Reynoso
== END 2016-10-13 18:34 | disposition home health service (06) | DRG 872 ==
LOC: N.ED 09:13 → N.EDINP 11:17 → SUATTDRO 11:17 → N.2E 11:48
PROVIDERS: ADMIT Internal Medicine Infectious Disease; ATTEND Internal Medicine

== ENCOUNTER 2020-01-20 12:21 | Inpatient (IN) ==
[2020-01-20] MEDS ORDERED: LORazepam 2 MG/1 ML VIAL IV STA (13:24)
[2020-01-20 13:29] LABS: Basophils % 0.3 % (0.0-0.8); Eosinophils # 0.1 10*3/uL (0.0-0.87); Eosinophils % 0.4 % (0.00-10.9); Hematocrit 41.9 VOL% (42.0-52.0); Hemoglobin 14.2 GM/DL (14.0-18.0); Immature Granulocytes Absolute 0.16 #; Lymphocytes # 3.2 10*3/uL (1.4-4.0); Lymphocytes % 19.7 % (21.2-54.2); Mean Corpuscular HGB Conc 33.9 GM/DL (32-36); Mean Corpuscular Volume 86.2 FL (87-102); Mean Platelet Volume 12.7 FL (9.6-12.0); Neutrophils % 65.6 % (38.7-73.9); Platelet Count 213 T/CUMM (130-400); Red Blood Count 4.86 MC/CUMM (3.8-5.5); Red Cell Distribution Width 12.9 % (9.3-17.3)
[2020-01-20 14:01] LABS: Osmolality,Calculated 296.8 MOS/KG (273-304)
[2020-01-20] MEDS ORDERED: MORPHINE 4 MG/1 ML VIAL IV PRN (14:16)
[2020-01-20] MEDS ORDERED: ONDANSETRON 4 MG/2 ML VIAL IV PRN (14:16)
[2020-01-20] MEDS ORDERED: ACETAMINOPHEN 325 MG TABLET PO PRN (14:16)
[2020-01-20] MEDS ORDERED: ZALEPLON 5 MG CAPSULE PO PRN (14:23)
[2020-01-20] MEDS ORDERED: IPRATROPIUM 500 MCG/2.5 ML NEB RESP TX PRN (14:23)
[2020-01-20] MEDS ORDERED: LACTULOSE 20 GM/30 ML UDCUP PO PRN (14:23)
[2020-01-20] MEDS: SODIUM CHLORIDE 0.45% 1,000 ML IV SCH (16:55)
[2020-01-20] MEDS: INSULIN NPH/REGULAR 70/30 100 UNIT/ML SUBCUT SCH ×2 (18:14→22:02)
[2020-01-20] MEDS: ENOXAPARIN 30 MG/0.3 ML SYRINGE SUBCUT SCH (20:58)
[2020-01-20] MEDS: EZETIMIBE 10 MG TABLET PO SCH (20:59)
[2020-01-20] MEDS ORDERED: DOCUSATE SODIUM 100 MG CAPSULE PO SCH (21:00)
[2020-01-20] MEDS: NYSTATIN CREAM 15 GM TUBE TOP SCH (21:11)
[2020-01-20] MEDS: ZINC OXIDE PASTE 113 GM TUBE TOP SCH (21:11)
[2020-01-20] MEDS: CALCIUM (CARBONATE) 600 MG TABLET PO SCH (22:01)
[2020-01-20] MEDS: DIVALPROEX 500 MG TABLET PO SCH (22:01)
[2020-01-20] MEDS: MEMANTINE 10 MG TABLET PO SCH (22:02)
[2020-01-20] MEDS: amLODIPine 10 MG TABLET PO SCH (22:02)
[2020-01-20] MEDS: MULTIVITAMIN (OCUVITE) TABLET PO SCH (22:02)
[2020-01-20] MEDS: FAMOTIDINE 20 MG TABLET PO SCH (22:02)
[2020-01-21] MEDS ORDERED: INSULIN NPH/REGULAR 70/30 100 UNIT/ML SUBCUT SCH (09:00)
[2020-01-21] MEDS ORDERED: fentaNYL 250 MCG/5 ML VIAL ONE (10:11)
[2020-01-21] MEDS ORDERED: MIDAZOLAM 2 MG/2 ML VIAL ONE (10:11)
[2020-01-21] MEDS ORDERED: ceFAZolin 1,000 MG VIAL ONE (10:55)
[2020-01-21] MEDS ORDERED: ONDANSETRON 4 MG/2 ML VIAL ONE (10:58)
[2020-01-21] MEDS ORDERED: PHENYLEPHRINE 1 MG/10 ML SYRINGE IV ONE ×2 (10:58→11:06)
[2020-01-21] MEDS ORDERED: ROCURONIUM 50 MG/5 ML VIAL IV ONE ×2 (10:58→11:16)
[2020-01-21] MEDS ORDERED: propofoL 200 MG/20 ML VIAL IV ONE (10:58)
[2020-01-21] MEDS ORDERED: SEVOFLURANE 1 UNIT/15 MINUTE INH ONE ×8 (10:58→11:53)
[2020-01-21] MEDS ORDERED: LIDOCAINE 2% 5 ML VIAL ONE (10:58)
[2020-01-21] MEDS ORDERED: ceFAZolin 2,000 MG in PREMIX 1 EACH IV ONE (11:00)
[2020-01-21] MEDS ORDERED: ePHEDrine 50 MG/ML VIAL ONE (11:08)
[2020-01-21] MEDS: CYANOCOBALAMIN 500 MCG TABLET PO SCH (11:15)
[2020-01-21] MEDS: MULTIVITAMIN (OCUVITE) TABLET PO SCH ×2 (11:15→22:49)
[2020-01-21] MEDS: FAMOTIDINE 20 MG TABLET PO SCH ×2 (11:15→22:49)
[2020-01-21] MEDS: SOLIFENACIN 5 MG TABLET PO SCH (11:15)
[2020-01-21] MEDS: PANTOPRAZOLE 40 MG TABLET PO SCH (11:15)
[2020-01-21] MEDS: CHOLECALCIFEROL 1,000 UNIT TABLET PO SCH (11:15)
[2020-01-21] MEDS: DOCUSATE SODIUM 100 MG CAPSULE PO SCH ×2 (11:16→22:47)
[2020-01-21] MEDS: DIVALPROEX 250 MG TABLET PO SCH (11:16)
[2020-01-21] MEDS: MEMANTINE 10 MG TABLET PO SCH ×2 (11:16→22:48)
[2020-01-21] MEDS: MULTIVITAMIN (CENTRUM) TABLET PO SCH (11:16)
[2020-01-21] MEDS: CALCIUM (CARBONATE) 600 MG TABLET PO SCH ×2 (11:16→22:47)
[2020-01-21] MEDS ORDERED: PHENYLEPHRINE 10 MG/1 ML VIAL IV ONE ×2 (11:26→11:41)
[2020-01-21] MEDS ORDERED: SODIUM CHLORIDE 0.9% 250 ML IV ONE (11:27)
[2020-01-21] MEDS ORDERED: LACTATED RINGERS 1,000 ML IV ONE (11:53)
[2020-01-21] MEDS ORDERED: NEOSTIGMINE 10 MG/10 ML VIAL ONE (11:54)
[2020-01-21] MEDS ORDERED: GLYCOPYRROLATE 0.4 MG/2 ML VIAL ONE (11:54)
[2020-01-21] MEDS ORDERED: DEXTROSE 50% 25 GM/50 ML VIAL IV PRN (12:14)
[2020-01-21] MEDS ORDERED: GLUCAGON 1 MG VIAL IM PRN (12:14)
[2020-01-21] MEDS: SODIUM CHLORIDE 0.45% 1,000 ML IV SCH (13:02)
[2020-01-21] MEDS: NYSTATIN CREAM 15 GM TUBE TOP SCH ×2 (13:12→21:04)
[2020-01-21] MEDS: ZINC OXIDE PASTE 113 GM TUBE TOP SCH ×2 (13:12→21:04)
[2020-01-21] MEDS: ceFAZolin 1,000 MG in SYRINGE 1 EACH IV SCH ×2 (13:12→22:45)
[2020-01-21] MEDS: MORPHINE 4 MG/1 ML VIAL IV PRN ×2 (14:18→17:31)
[2020-01-21] MEDS: INSULIN NPH/REGULAR 70/30 100 UNIT/ML SUBCUT SCH ×2 (16:36→22:48)
[2020-01-21] MEDS ORDERED: TUBERCULIN SKIN TEST 0.1 ML SYRINGE INTRADERM ONE (18:49)
[2020-01-21] MEDS: ENOXAPARIN 30 MG/0.3 ML SYRINGE SUBCUT SCH (21:52)
[2020-01-21] MEDS: DIVALPROEX 500 MG TABLET PO SCH (22:34)
[2020-01-21] MEDS: amLODIPine 10 MG TABLET PO SCH (22:49)
[2020-01-21] MEDS: EZETIMIBE 10 MG TABLET PO SCH (22:49)
[2020-01-22] MEDS: MORPHINE 4 MG/1 ML VIAL IV PRN ×2 (04:31→12:36)
[2020-01-22] MEDS ORDERED: ceFAZolin 1,000 MG in SYRINGE 1 EACH IV SCH (07:15)
[2020-01-22] MEDS: ceFAZolin 1,000 MG in SYRINGE 1 EACH IV SCH (07:36)
[2020-01-22] MEDS: INSULIN NPH/REGULAR 70/30 100 UNIT/ML SUBCUT SCH ×2 (08:34→15:43)
[2020-01-22] MEDS ORDERED: HALOPERIDOL 5 MG/ML AMP IV PRN (08:58)
[2020-01-22 09:06] LABS: Basophils % 0.2 % (0.0-0.8); Eosinophils # 0.1 10*3/uL (0.0-0.87); Hematocrit 36.1 VOL% (42.0-52.0); Hemoglobin 12.4 GM/DL (14.0-18.0); Immature Granulocytes % 1.7 %; Immature Granulocytes Absolute 0.22 #; Lymphocytes # 2.4 10*3/uL (1.4-4.0); Lymphocytes % 18.9 % (21.2-54.2); Mean Corpuscular HGB Conc 34.3 GM/DL (32-36); Mean Corpuscular Volume 85.7 FL (87-102); Mean Platelet Volume 12.6 FL (9.6-12.0); Monocytes % 14.2 % (1.7-12.7); Platelet Count 189 T/CUMM (130-400); Red Blood Count 4.21 MC/CUMM (3.8-5.5); Red Cell Distribution Width 13.2 % (9.3-17.3); White Blood Count 12.7 T/CUMM (4-12)
[2020-01-22] MEDS ORDERED: LORazepam 2 MG/1 ML VIAL IM ONE (09:06)
[2020-01-22 09:24] LABS: Calcium 8.5 MG/DL (8.5-10.1); Osmolality,Calculated 296.1 MOS/KG (273-304)
[2020-01-22] MEDS: MULTIVITAMIN (OCUVITE) TABLET PO SCH ×2 (12:08→21:43)
[2020-01-22] MEDS: FAMOTIDINE 20 MG TABLET PO SCH ×2 (12:08→21:44)
[2020-01-22] MEDS: PANTOPRAZOLE 40 MG TABLET PO SCH (12:08)
[2020-01-22] MEDS: MEMANTINE 10 MG TABLET PO SCH ×2 (12:08→21:37)
[2020-01-22] MEDS: MULTIVITAMIN (CENTRUM) TABLET PO SCH (12:08)
[2020-01-22] MEDS: DIVALPROEX 250 MG TABLET PO SCH (12:08)
[2020-01-22] MEDS: CALCIUM (CARBONATE) 600 MG TABLET PO SCH ×2 (12:08→21:35)
[2020-01-22] MEDS: DOCUSATE SODIUM 100 MG CAPSULE PO SCH ×2 (12:08→21:36)
[2020-01-22] MEDS: CYANOCOBALAMIN 500 MCG TABLET PO SCH (12:09)
[2020-01-22] MEDS: INSULIN LISPRO 100 UNIT/ML SUBCUT SCH ×2 (12:09→15:43)
[2020-01-22] MEDS: SOLIFENACIN 5 MG TABLET PO SCH (12:09)
[2020-01-22] MEDS: CHOLECALCIFEROL 1,000 UNIT TABLET PO SCH (12:09)
[2020-01-22] MEDS: SODIUM CHLORIDE 0.45% 1,000 ML IV SCH (12:36)
[2020-01-22] MEDS: ZINC OXIDE PASTE 113 GM TUBE TOP SCH ×2 (12:37→21:36)
[2020-01-22] MEDS: NYSTATIN CREAM 15 GM TUBE TOP SCH ×2 (12:38→21:36)
[2020-01-22] MEDS: ENOXAPARIN 30 MG/0.3 ML SYRINGE SUBCUT SCH (21:25)
[2020-01-22] MEDS: DIVALPROEX 500 MG TABLET PO SCH (21:36)
[2020-01-22] MEDS: EZETIMIBE 10 MG TABLET PO SCH (21:44)
[2020-01-22] MEDS: amLODIPine 10 MG TABLET PO SCH (21:49)
[2020-01-22] MEDS: LORazepam 2 MG/1 ML VIAL IV PRN (22:39)
[2020-01-23 06:04] LABS: Basophils # 0.1 10*3/uL (0.0-0.2); Basophils % 0.4 % (0.0-0.8); Eosinophils # 0.1 10*3/uL (0.0-0.87); Eosinophils % 0.6 % (0.00-10.9); Hematocrit 36.5 VOL% (42.0-52.0); Hemoglobin 12.5 GM/DL (14.0-18.0); Immature Granulocytes % 1.7 %; Immature Granulocytes Absolute 0.22 #; Lymphocytes # 2.5 10*3/uL (1.4-4.0); Lymphocytes % 19.6 % (21.2-54.2); Mean Corpuscular HGB Conc 34.2 GM/DL (32-36); Mean Corpuscular Volume 86.1 FL (87-102); Mean Platelet Volume 12.7 FL (9.6-12.0); Monocytes % 13.9 % (1.7-12.7); Neutrophils % 63.8 % (38.7-73.9); Platelet Count 209 T/CUMM (130-400); Red Blood Count 4.24 MC/CUMM (3.8-5.5); Red Cell Distribution Width 13.2 % (9.3-17.3); White Blood Count 12.8 T/CUMM (4-12)
[2020-01-23] MEDS: INSULIN LISPRO 100 UNIT/ML SUBCUT SCH ×3 (07:12→15:31)
[2020-01-23] MEDS: INSULIN NPH/REGULAR 70/30 100 UNIT/ML SUBCUT SCH ×2 (07:49→15:34)
[2020-01-23] MEDS: PANTOPRAZOLE 40 MG TABLET PO SCH (09:09)
[2020-01-23] MEDS: CHOLECALCIFEROL 1,000 UNIT TABLET PO SCH (09:09)
[2020-01-23] MEDS: MULTIVITAMIN (CENTRUM) TABLET PO SCH (09:09)
[2020-01-23] MEDS: SOLIFENACIN 5 MG TABLET PO SCH (09:09)
[2020-01-23] MEDS: FAMOTIDINE 20 MG TABLET PO SCH ×2 (09:10→21:34)
[2020-01-23] MEDS: CALCIUM (CARBONATE) 600 MG TABLET PO SCH ×2 (09:10→21:35)
[2020-01-23] MEDS: DOCUSATE SODIUM 100 MG CAPSULE PO SCH ×2 (09:10→21:34)
[2020-01-23] MEDS: CYANOCOBALAMIN 500 MCG TABLET PO SCH (09:10)
[2020-01-23] MEDS: MEMANTINE 10 MG TABLET PO SCH ×2 (09:10→21:35)
[2020-01-23] MEDS: MORPHINE 4 MG/1 ML VIAL IV PRN ×2 (09:21→15:06)
[2020-01-23] MEDS: DIVALPROEX 250 MG TABLET PO SCH (09:44)
[2020-01-23] MEDS: MULTIVITAMIN (OCUVITE) TABLET PO SCH ×2 (09:45→21:35)
[2020-01-23] MEDS: ZINC OXIDE PASTE 113 GM TUBE TOP SCH ×2 (09:45→21:50)
[2020-01-23] MEDS: NYSTATIN CREAM 15 GM TUBE TOP SCH ×2 (09:45→21:50)
[2020-01-23] MEDS: SODIUM CHLORIDE 0.45% 1,000 ML IV SCH (10:34)
[2020-01-23] MEDS: amLODIPine 10 MG TABLET PO SCH (21:35)
[2020-01-23] MEDS: ENOXAPARIN 30 MG/0.3 ML SYRINGE SUBCUT SCH (21:35)
[2020-01-23] MEDS: DIVALPROEX 500 MG TABLET PO SCH ×2 (21:54→22:03)
[2020-01-23] MEDS: EZETIMIBE 10 MG TABLET PO SCH (22:02)
[2020-01-24] MEDS: LORazepam 2 MG/1 ML VIAL IV PRN (01:24)
[2020-01-24 06:12] LABS: Basophils % 0.3 % (0.0-0.8); Eosinophils # 0.1 10*3/uL (0.0-0.87); Eosinophils % 0.4 % (0.00-10.9); Immature Granulocytes % 1.2 %; Immature Granulocytes Absolute 0.16 #; Lymphocytes # 2.5 10*3/uL (1.4-4.0); Lymphocytes % 18.6 % (21.2-54.2); Mean Corpuscular HGB Conc 34.2 GM/DL (32-36); Mean Corpuscular Volume 86.4 FL (87-102); Neutrophils % 67.5 % (38.7-73.9); Platelet Count 235 T/CUMM (130-400); Red Cell Distribution Width 13.2 % (9.3-17.3); White Blood Count 13.6 T/CUMM (4-12)
[2020-01-24 06:35] LABS: Osmolality,Calculated 297.8 MOS/KG (273-304)
[2020-01-24] MEDS: MULTIVITAMIN (CENTRUM) TABLET PO SCH (09:50)
[2020-01-24] MEDS: MEMANTINE 10 MG TABLET PO SCH ×2 (09:50→22:12)
[2020-01-24] MEDS: FAMOTIDINE 20 MG TABLET PO SCH ×2 (09:50→22:11)
[2020-01-24] MEDS: CYANOCOBALAMIN 500 MCG TABLET PO SCH (09:50)
[2020-01-24] MEDS: PANTOPRAZOLE 40 MG TABLET PO SCH (09:50)
[2020-01-24] MEDS: MULTIVITAMIN (OCUVITE) TABLET PO SCH ×2 (09:51→22:12)
[2020-01-24] MEDS: SOLIFENACIN 5 MG TABLET PO SCH (09:51)
[2020-01-24] MEDS: CALCIUM (CARBONATE) 600 MG TABLET PO SCH ×2 (09:51→22:11)
[2020-01-24] MEDS: CHOLECALCIFEROL 1,000 UNIT TABLET PO SCH (09:51)
[2020-01-24] MEDS: INSULIN NPH/REGULAR 70/30 100 UNIT/ML SUBCUT SCH ×2 (10:26→16:09)
[2020-01-24] MEDS: INSULIN LISPRO 100 UNIT/ML SUBCUT SCH ×3 (10:26→16:09)
[2020-01-24] MEDS: DOCUSATE SODIUM 100 MG CAPSULE PO SCH ×2 (10:27→22:12)
[2020-01-24] MEDS: DIVALPROEX 250 MG TABLET PO SCH (10:27)
[2020-01-24] MEDS: ZINC OXIDE PASTE 113 GM TUBE TOP SCH ×2 (10:27→22:13)
[2020-01-24] MEDS: NYSTATIN CREAM 15 GM TUBE TOP SCH ×2 (10:27→22:13)
[2020-01-24] MEDS: SODIUM CHLORIDE 0.45% 1,000 ML IV SCH (10:30)
[2020-01-24] MEDS: MORPHINE 4 MG/1 ML VIAL IV PRN ×2 (11:34→15:44)
[2020-01-24] MEDS: amLODIPine 10 MG TABLET PO SCH (22:11)
[2020-01-24] MEDS: DIVALPROEX 500 MG TABLET PO SCH (22:12)
[2020-01-24] MEDS: EZETIMIBE 10 MG TABLET PO SCH (22:12)
[2020-01-24] MEDS: ENOXAPARIN 40 MG/0.4 ML SYRINGE SUBCUT SCH (22:12)
[2020-01-25 05:43] LABS: Basophils # 0.1 10*3/uL (0.0-0.2); Basophils % 0.5 % (0.0-0.8); Eosinophils # 0.3 10*3/uL (0.0-0.87); Eosinophils % 2.2 % (0.00-10.9); Hematocrit 36.6 VOL% (42.0-52.0); Hemoglobin 12.3 GM/DL (14.0-18.0); Immature Granulocytes Absolute 0.13 #; Lymphocytes # 3.1 10*3/uL (1.4-4.0); Lymphocytes % 24.7 % (21.2-54.2); Mean Corpuscular HGB Conc 33.6 GM/DL (32-36); Mean Corpuscular Volume 87.8 FL (87-102); Monocytes % 12.6 % (1.7-12.7); Platelet Count 230 T/CUMM (130-400); Red Blood Count 4.17 MC/CUMM (3.8-5.5); Red Cell Distribution Width 13.4 % (9.3-17.3); White Blood Count 12.4 T/CUMM (4-12)
[2020-01-25 06:51] LABS: Calcium 8.8 MG/DL (8.5-10.1); Osmolality,Calculated 305.3 MOS/KG (273-304)
[2020-01-25] MEDS: MULTIVITAMIN (CENTRUM) TABLET PO SCH (09:43)
[2020-01-25] MEDS: DIVALPROEX 250 MG TABLET PO SCH (09:43)
[2020-01-25] MEDS: DOCUSATE SODIUM 100 MG CAPSULE PO SCH ×2 (09:43→22:31)
[2020-01-25] MEDS: CALCIUM (CARBONATE) 600 MG TABLET PO SCH ×2 (09:43→22:30)
[2020-01-25] MEDS: NYSTATIN CREAM 15 GM TUBE TOP SCH ×2 (09:44→22:37)
[2020-01-25] MEDS: ZINC OXIDE PASTE 113 GM TUBE TOP SCH ×2 (09:44→22:37)
[2020-01-25] MEDS: MEMANTINE 10 MG TABLET PO SCH ×2 (09:44→22:32)
[2020-01-25] MEDS: FAMOTIDINE 20 MG TABLET PO SCH ×2 (09:44→22:31)
[2020-01-25] MEDS: MULTIVITAMIN (OCUVITE) TABLET PO SCH ×2 (09:44→22:31)
[2020-01-25] MEDS: PANTOPRAZOLE 40 MG TABLET PO SCH (09:44)
[2020-01-25] MEDS: CYANOCOBALAMIN 500 MCG TABLET PO SCH (09:45)
[2020-01-25] MEDS: CHOLECALCIFEROL 1,000 UNIT TABLET PO SCH (09:45)
[2020-01-25] MEDS: SOLIFENACIN 5 MG TABLET PO SCH (09:45)
[2020-01-25] MEDS: INSULIN NPH/REGULAR 70/30 100 UNIT/ML SUBCUT SCH ×3 (09:56→16:30)
[2020-01-25] MEDS: INSULIN LISPRO 100 UNIT/ML SUBCUT SCH ×3 (09:57→17:50)
[2020-01-25] MEDS: MORPHINE 4 MG/1 ML VIAL IV PRN ×2 (10:39→15:26)
[2020-01-25] MEDS: SODIUM CHLORIDE 0.45% 1,000 ML IV SCH ×2 (12:46→14:30)
[2020-01-25] MEDS: ENOXAPARIN 40 MG/0.4 ML SYRINGE SUBCUT SCH (22:30)
[2020-01-25] MEDS: EZETIMIBE 10 MG TABLET PO SCH (22:31)
[2020-01-25] MEDS: amLODIPine 10 MG TABLET PO SCH (22:32)
[2020-01-25] MEDS: DIVALPROEX 500 MG TABLET PO SCH (22:32)
[2020-01-26 06:14] LABS: Basophils # 0.1 10*3/uL (0.0-0.2); Basophils % 0.4 % (0.0-0.8); Eosinophils # 0.4 10*3/uL (0.0-0.87); Eosinophils % 3.1 % (0.00-10.9); Hematocrit 37.3 VOL% (42.0-52.0); Hemoglobin 12.6 GM/DL (14.0-18.0); Immature Granulocytes % 1.1 %; Immature Granulocytes Absolute 0.14 #; Lymphocytes # 3.3 10*3/uL (1.4-4.0); Mean Corpuscular HGB Conc 33.8 GM/DL (32-36); Mean Corpuscular Volume 87.6 FL (87-102); Mean Platelet Volume 11.7 FL (9.6-12.0); Monocytes % 11.4 % (1.7-12.7); Platelet Count 231 T/CUMM (130-400); Red Blood Count 4.26 MC/CUMM (3.8-5.5); Red Cell Distribution Width 13.6 % (9.3-17.3); White Blood Count 12.3 T/CUMM (4-12)
[2020-01-26 06:35] LABS: Calcium 8.7 MG/DL (8.5-10.1); Osmolality,Calculated 295.8 MOS/KG (273-304)
[2020-01-26] MEDS: CALCIUM (CARBONATE) 600 MG TABLET PO SCH ×2 (09:23→21:57)
[2020-01-26] MEDS: INSULIN NPH/REGULAR 70/30 100 UNIT/ML SUBCUT SCH ×2 (09:23→17:16)
[2020-01-26] MEDS: INSULIN LISPRO 100 UNIT/ML SUBCUT SCH ×3 (09:23→17:16)
[2020-01-26] MEDS: MULTIVITAMIN (CENTRUM) TABLET PO SCH (09:24)
[2020-01-26] MEDS: NYSTATIN CREAM 15 GM TUBE TOP SCH ×2 (09:24→22:03)
[2020-01-26] MEDS: DIVALPROEX 250 MG TABLET PO SCH (09:24)
[2020-01-26] MEDS: DOCUSATE SODIUM 100 MG CAPSULE PO SCH ×2 (09:24→21:57)
[2020-01-26] MEDS: ZINC OXIDE PASTE 113 GM TUBE TOP SCH ×2 (09:24→22:03)
[2020-01-26] MEDS: PANTOPRAZOLE 40 MG TABLET PO SCH (09:25)
[2020-01-26] MEDS: FAMOTIDINE 20 MG TABLET PO SCH ×2 (09:25→22:05)
[2020-01-26] MEDS: MULTIVITAMIN (OCUVITE) TABLET PO SCH ×2 (09:25→22:04)
[2020-01-26] MEDS: MEMANTINE 10 MG TABLET PO SCH ×2 (09:25→22:04)
[2020-01-26] MEDS: SOLIFENACIN 5 MG TABLET PO SCH (09:25)
[2020-01-26] MEDS: CHOLECALCIFEROL 1,000 UNIT TABLET PO SCH (09:26)
[2020-01-26] MEDS: CYANOCOBALAMIN 500 MCG TABLET PO SCH (09:26)
[2020-01-26] MEDS: SODIUM CHLORIDE 0.45% 1,000 ML IV SCH (12:08)
[2020-01-26] MEDS: MORPHINE 4 MG/1 ML VIAL IV PRN (15:18)
[2020-01-26] MEDS: fentaNYL 12 MCG/HR PATCH TRANSDERM SCH (18:40)
[2020-01-26] MEDS: DIVALPROEX 500 MG TABLET PO SCH (22:03)
[2020-01-26] MEDS: ENOXAPARIN 40 MG/0.4 ML SYRINGE SUBCUT SCH (22:03)
[2020-01-26] MEDS: amLODIPine 10 MG TABLET PO SCH (22:04)
[2020-01-26] MEDS: EZETIMIBE 10 MG TABLET PO SCH (22:05)
[2020-01-26] MEDS: LORazepam 2 MG/1 ML VIAL IV PRN (22:06)
[2020-01-27 06:35] LABS: Basophils % 0.2 % (0.0-0.8); Eosinophils # 0.3 10*3/uL (0.0-0.87); Eosinophils % 2.3 % (0.00-10.9); Hematocrit 38.2 VOL% (42.0-52.0); Hemoglobin 13.1 GM/DL (14.0-18.0); Immature Granulocytes % 1.2 %; Immature Granulocytes Absolute 0.16 #; Lymphocytes # 3.7 10*3/uL (1.4-4.0); Lymphocytes % 27.1 % (21.2-54.2); Mean Corpuscular HGB Conc 34.3 GM/DL (32-36); Mean Corpuscular Volume 86.6 FL (87-102); Mean Platelet Volume 11.8 FL (9.6-12.0); Monocytes % 10.6 % (1.7-12.7); Neutrophils % 58.6 % (38.7-73.9); Platelet Count 238 T/CUMM (130-400); Red Blood Count 4.41 MC/CUMM (3.8-5.5); Red Cell Distribution Width 13.7 % (9.3-17.3); White Blood Count 13.7 T/CUMM (4-12)
[2020-01-27 06:51] LABS: Calcium 8.5 MG/DL (8.5-10.1)
[2020-01-27] MEDS: INSULIN LISPRO 100 UNIT/ML SUBCUT SCH ×3 (07:51→17:25)
[2020-01-27] MEDS: INSULIN NPH/REGULAR 70/30 100 UNIT/ML SUBCUT SCH ×2 (07:52→17:25)
[2020-01-27] MEDS: CALCIUM (CARBONATE) 600 MG TABLET PO SCH ×2 (09:02→21:39)
[2020-01-27] MEDS: NYSTATIN CREAM 15 GM TUBE TOP SCH ×2 (09:02→21:42)
[2020-01-27] MEDS: ZINC OXIDE PASTE 113 GM TUBE TOP SCH ×2 (09:02→21:41)
[2020-01-27] MEDS: MULTIVITAMIN (CENTRUM) TABLET PO SCH (09:02)
[2020-01-27] MEDS: MEMANTINE 10 MG TABLET PO SCH ×2 (09:03→21:42)
[2020-01-27] MEDS: PANTOPRAZOLE 40 MG TABLET PO SCH (09:03)
[2020-01-27] MEDS: DIVALPROEX 250 MG TABLET PO SCH (09:03)
[2020-01-27] MEDS: FAMOTIDINE 20 MG TABLET PO SCH ×2 (09:03→21:42)
[2020-01-27] MEDS: DOCUSATE SODIUM 100 MG CAPSULE PO SCH ×2 (09:03→21:39)
[2020-01-27] MEDS: MULTIVITAMIN (OCUVITE) TABLET PO SCH ×2 (09:03→21:42)
[2020-01-27] MEDS: SOLIFENACIN 5 MG TABLET PO SCH (09:04)
[2020-01-27] MEDS: CYANOCOBALAMIN 500 MCG TABLET PO SCH (09:04)
[2020-01-27] MEDS: CHOLECALCIFEROL 1,000 UNIT TABLET PO SCH (09:04)
[2020-01-27] MEDS: SODIUM CHLORIDE 0.45% 1,000 ML IV SCH (09:52)
[2020-01-27] MEDS: MORPHINE 4 MG/1 ML VIAL IV PRN (10:52)
[2020-01-27] MEDS: LORazepam 2 MG/1 ML VIAL IV PRN ×2 (15:38→21:43)
[2020-01-27] MEDS: DIVALPROEX 500 MG TABLET PO SCH (21:40)
[2020-01-27] MEDS: ENOXAPARIN 40 MG/0.4 ML SYRINGE SUBCUT SCH (21:41)
[2020-01-27] MEDS: amLODIPine 10 MG TABLET PO SCH (21:42)
[2020-01-27] MEDS: EZETIMIBE 10 MG TABLET PO SCH (21:43)
[2020-01-28] MEDS: MORPHINE 4 MG/1 ML VIAL IV PRN ×2 (04:22→21:10)
[2020-01-28 06:04] LABS: Basophils % 0.2 % (0.0-0.8); Eosinophils # 0.3 10*3/uL (0.0-0.87); Eosinophils % 2.4 % (0.00-10.9); Hematocrit 35.8 VOL% (42.0-52.0); Hemoglobin 12.2 GM/DL (14.0-18.0); Immature Granulocytes Absolute 0.12 #; Lymphocytes # 3.6 10*3/uL (1.4-4.0); Lymphocytes % 29.1 % (21.2-54.2); Mean Corpuscular HGB Conc 34.1 GM/DL (32-36); Mean Corpuscular Volume 86.9 FL (87-102); Mean Platelet Volume 12.6 FL (9.6-12.0); Monocytes % 9.5 % (1.7-12.7); Neutrophils % 57.8 % (38.7-73.9); Platelet Count 211 T/CUMM (130-400); Red Blood Count 4.12 MC/CUMM (3.8-5.5); Red Cell Distribution Width 13.8 % (9.3-17.3); White Blood Count 12.2 T/CUMM (4-12)
[2020-01-28 06:17] LABS: Calcium 8.6 MG/DL (8.5-10.1); Osmolality,Calculated 299.6 MOS/KG (273-304)
[2020-01-28] MEDS: FAMOTIDINE 20 MG TABLET PO SCH ×2 (09:00→21:07)
[2020-01-28] MEDS: DOCUSATE SODIUM 100 MG CAPSULE PO SCH ×2 (09:00→21:08)
[2020-01-28] MEDS: INSULIN NPH/REGULAR 70/30 100 UNIT/ML SUBCUT SCH ×2 (09:00→17:20)
[2020-01-28] MEDS: MULTIVITAMIN (OCUVITE) TABLET PO SCH ×2 (09:00→23:53)
[2020-01-28] MEDS: SOLIFENACIN 5 MG TABLET PO SCH (09:00)
[2020-01-28] MEDS: INSULIN LISPRO 100 UNIT/ML SUBCUT SCH ×3 (09:00→16:35)
[2020-01-28] MEDS: MULTIVITAMIN (CENTRUM) TABLET PO SCH (09:01)
[2020-01-28] MEDS: CYANOCOBALAMIN 500 MCG TABLET PO SCH (09:01)
[2020-01-28] MEDS: MEMANTINE 10 MG TABLET PO SCH ×2 (09:01→21:08)
[2020-01-28] MEDS: NYSTATIN CREAM 15 GM TUBE TOP SCH ×2 (09:01→23:53)
[2020-01-28] MEDS: CHOLECALCIFEROL 1,000 UNIT TABLET PO SCH (09:01)
[2020-01-28] MEDS: ZINC OXIDE PASTE 113 GM TUBE TOP SCH ×2 (09:01→23:53)
[2020-01-28] MEDS: CALCIUM (CARBONATE) 600 MG TABLET PO SCH ×2 (09:01→21:08)
[2020-01-28] MEDS: DIVALPROEX 250 MG TABLET PO SCH (09:01)
[2020-01-28] MEDS: PANTOPRAZOLE 40 MG TABLET PO SCH (09:01)
[2020-01-28] MEDS: ENOXAPARIN 40 MG/0.4 ML SYRINGE SUBCUT SCH (21:07)
[2020-01-28] MEDS: DIVALPROEX 500 MG TABLET PO SCH (21:07)
[2020-01-28] MEDS: EZETIMIBE 10 MG TABLET PO SCH (21:08)
[2020-01-28] MEDS: amLODIPine 10 MG TABLET PO SCH (21:08)
[2020-01-28] MEDS: LORazepam 2 MG/1 ML VIAL IV PRN (23:23)
[2020-01-29] MEDS ORDERED: MORPHINE 4 MG/1 ML VIAL IV PRN (02:40)
[2020-01-29] MEDS: SODIUM CHLORIDE 0.45% 1,000 ML IV SCH ×4 (03:11→23:25)
[2020-01-29] MEDS: CALCIUM (CARBONATE) 600 MG TABLET PO SCH ×2 (09:14→22:22)
[2020-01-29] MEDS: MULTIVITAMIN (CENTRUM) TABLET PO SCH (09:14)
[2020-01-29] MEDS: FAMOTIDINE 20 MG TABLET PO SCH ×2 (09:14→22:23)
[2020-01-29] MEDS: CYANOCOBALAMIN 500 MCG TABLET PO SCH (09:14)
[2020-01-29] MEDS: MULTIVITAMIN (OCUVITE) TABLET PO SCH ×2 (09:14→22:23)
[2020-01-29] MEDS: MEMANTINE 10 MG TABLET PO SCH ×2 (09:15→22:23)
[2020-01-29] MEDS: INSULIN LISPRO 100 UNIT/ML SUBCUT SCH ×3 (09:15→16:30)
[2020-01-29] MEDS: DOCUSATE SODIUM 100 MG CAPSULE PO SCH ×2 (09:15→22:22)
[2020-01-29] MEDS: CHOLECALCIFEROL 1,000 UNIT TABLET PO SCH (09:15)
[2020-01-29] MEDS: PANTOPRAZOLE 40 MG TABLET PO SCH (09:15)
[2020-01-29] MEDS: SOLIFENACIN 5 MG TABLET PO SCH (09:15)
[2020-01-29] MEDS: DIVALPROEX 250 MG TABLET PO SCH (09:15)
[2020-01-29] MEDS: INSULIN NPH/REGULAR 70/30 100 UNIT/ML SUBCUT SCH ×2 (09:16→17:27)
[2020-01-29] MEDS: ZINC OXIDE PASTE 113 GM TUBE TOP SCH ×2 (09:16→22:22)
[2020-01-29] MEDS: NYSTATIN CREAM 15 GM TUBE TOP SCH ×2 (09:16→22:22)
[2020-01-29] MEDS: fentaNYL 12 MCG/HR PATCH TRANSDERM SCH (11:15)
[2020-01-29] MEDS: MORPHINE 4 MG/1 ML VIAL IV PRN (20:23)
[2020-01-29] MEDS: LORazepam 2 MG/1 ML VIAL IV PRN (20:24)
[2020-01-29] MEDS: ENOXAPARIN 40 MG/0.4 ML SYRINGE SUBCUT SCH (22:22)
[2020-01-29] MEDS: DIVALPROEX 500 MG TABLET PO SCH (22:22)
[2020-01-29] MEDS: amLODIPine 10 MG TABLET PO SCH (22:23)
[2020-01-29] MEDS: EZETIMIBE 10 MG TABLET PO SCH (22:23)
[2020-01-30 05:49] LABS: Basophils % 0.3 % (0.0-0.8); Eosinophils # 0.2 10*3/uL (0.0-0.87); Eosinophils % 1.2 % (0.00-10.9); Hematocrit 34.1 VOL% (42.0-52.0); Hemoglobin 11.7 GM/DL (14.0-18.0); Immature Granulocytes % 0.5 %; Immature Granulocytes Absolute 0.07 #; Lymphocytes # 2.9 10*3/uL (1.4-4.0); Lymphocytes % 20.9 % (21.2-54.2); Mean Corpuscular HGB Conc 34.3 GM/DL (32-36); Mean Corpuscular Volume 87.2 FL (87-102); Mean Platelet Volume 12.7 FL (9.6-12.0); Monocytes % 7.5 % (1.7-12.7); Neutrophils % 69.6 % (38.7-73.9); Platelet Count 195 T/CUMM (130-400); Red Blood Count 3.91 MC/CUMM (3.8-5.5); Red Cell Distribution Width 14.5 % (9.3-17.3); White Blood Count 13.9 T/CUMM (4-12)
[2020-01-30 06:26] LABS: Calcium 8.1 MG/DL (8.5-10.1); Osmolality,Calculated 299.4 MOS/KG (273-304)
[2020-01-30] MEDS ORDERED: INSULIN NPH/REGULAR 70/30 100 UNIT/ML SUBCUT SCH ×2 (08:15→17:00)
[2020-01-30] MEDS: INSULIN NPH/REGULAR 70/30 100 UNIT/ML SUBCUT SCH (08:36)
[2020-01-30] MEDS: INSULIN LISPRO 100 UNIT/ML SUBCUT SCH ×2 (08:36→12:01)
[2020-01-30] MEDS: MULTIVITAMIN (OCUVITE) TABLET PO SCH (08:37)
[2020-01-30] MEDS: PANTOPRAZOLE 40 MG TABLET PO SCH (08:38)
[2020-01-30] MEDS: SOLIFENACIN 5 MG TABLET PO SCH (08:38)
[2020-01-30] MEDS: MULTIVITAMIN (CENTRUM) TABLET PO SCH (08:38)
[2020-01-30] MEDS: DIVALPROEX 250 MG TABLET PO SCH (08:38)
[2020-01-30] MEDS: CYANOCOBALAMIN 500 MCG TABLET PO SCH (08:38)
[2020-01-30] MEDS: DOCUSATE SODIUM 100 MG CAPSULE PO SCH (08:38)
[2020-01-30] MEDS: CHOLECALCIFEROL 1,000 UNIT TABLET PO SCH (08:38)
[2020-01-30] MEDS: MEMANTINE 10 MG TABLET PO SCH (08:38)
[2020-01-30] MEDS: CALCIUM (CARBONATE) 600 MG TABLET PO SCH (08:38)
[2020-01-30] MEDS: FAMOTIDINE 20 MG TABLET PO SCH (08:38)
[2020-01-30] MEDS: ZINC OXIDE PASTE 113 GM TUBE TOP SCH (08:39)
[2020-01-30] MEDS: NYSTATIN CREAM 15 GM TUBE TOP SCH (08:39)
[2020-01-30] MEDS: MORPHINE 4 MG/1 ML VIAL IV PRN (10:44)
[2020-01-30 11:23] VITALS: BP 117/55
[2020-01-30] MEDS: SODIUM CHLORIDE 0.45% 1,000 ML IV SCH (13:44)
[2020-01-31] MEDS ORDERED: CLOPIDOGREL 75 MG TABLET PO SCH (09:00)
== END 2020-01-30 14:40 | disposition home health service (06) | DRG 493 ==
LOC: EDBD → EDUNIT# → N.ED 12:21 → N.3E 14:16
PROVIDERS: ADMIT Internal Medicine; ATTEND Internal Medicine